=== PATIENT | female | born 1990 | race African-American/Black ===

== ENCOUNTER 2017-03-24 18:24 | Emergency (ER) | payer BC, OTHER ==
[~2017-03-24 18:24] MED LIST: ALBU8.5H6 IH; BUDE10.2 IH
--- NOTE | 2017-03-24 18:32 | ED.ADGEN ---
Past History Past Medical History: Asthma, Other Past Surgical History: , Tonsillectomy Alcohol Use: Occasionally Drug Use: None Adult General Chief Complaint Chief Complaint " My Lt knee popped yesterday.. at work at ... " HPI HPI Patient is a 26 year old female who presents with above hx and complaints of left knee pain. Patient was sitting down and felt a pop and left knee. Injury occurred yesterday while at working. Patient has been ambulatory but has had discomfort and swelling in left knee. Patient is able to do straight leg lift. Collateral and cruciate ligaments appear grossly stable. Distal neurovascular intact. There is some crepitation with range of motion of left knee. Left knee is mildly swollen as compared to right knee. Review of Systems Review of Systems Constitutional: Denies fever or chills [] Eyes: Denies change in visual acuity, redness, or eye pain [] HENT: Denies nasal congestion or sore throat [] Respiratory: Denies cough or shortness of breath [] Cardiovascular: No additional information not addressed in HPI [] GI: Denies abdominal pain, nausea, vomiting, bloody stools or diarrhea [] : Denies dysuria or hematuria [] Musculoskeletal: Denies back pain or joint pain []except findings of left knee Integument: Denies rash or skin lesions [] Neurologic: Denies headache, focal weakness or sensory changes [] Endocrine: Denies polyuria or polydipsia [] All other systems were reviewed and found to be within normal limits, except as documented in this note. Current Medications Current Medications Current Medications Medications (Trade) Dose Ordered Sig/[facility] Start Time Stop Time Status Last Admin Dose Admin Hydrocodone Bitartrate/ Ibuprofen (Vicoprofen 7.5-200) 2 tab 1X ONCE 03/24/17 19:45 03/24/17 19:46 DC 03/24/17 20:06 2 TAB Allergies Allergies Allergies Coded Allergies Type Severity Reaction Last Updated Verified Penicillins Allergy Unknown 03/24/17 Yes cephalexin Allergy Unknown Hives 03/24/17 Yes ciprofloxacin Allergy Unknown Rash 03/24/17 Yes Physical Exam Physical Exam Constitutional: Moderately acute distress, non-toxic appearance. [] HENT: Normocephalic, atraumatic, bilateral external ears normal, oropharynx moist, no oral exudates, nose normal. [] Eyes: PERRLA, EOMI, conjunctiva normal, no discharge. [] Neck: Normal range of motion, no tenderness, supple, no stridor. [] Cardiovascular:Heart rate regular rhythm, no murmur [] Lungs & Thorax: Bilateral breath sounds equal few scattered wheezes on auscultation [] Abdomen: Bowel sounds normal, soft, no tenderness, no masses, no pulsatile masses. Obese. Old surgery scar Skin: Warm, dry, no erythema, no rash. [] Back: No tenderness, no CVA tenderness. [] Extremities: No tenderness, no cyanosis, no clubbing, ROM intact, no edema. Except findings of left knee as per history of present illness Neurologic: Alert and oriented X 3, normal motor function, normal sensory function, no focal deficits noted. [] Psychologic: Affect normal, judgement normal, mood normal. [] Current Patient Data Vital Signs Vital Signs Date Time Temp Pulse Resp B/P (MAP) Pulse Ox O2 Delivery O2 Flow Rate FiO2 03/24/17 18:24 97.6 80 20 99 Room Air EKG EKG [] Radiology/Procedures Radiology/Procedures My interpretation of left knee x-ray shows no fracture or dislocation.[] Course & Med Decision Making Course & Med Decision Making Pertinent Labs and Imaging studies reviewed. (See chart for details). Patient take Tylenol and ibuprofen as needed for pain. Patient to allow need to rest and wear rima wrap. Ice packs as needed. Follow up with primary care. Follow-up work comp. May need arthroscopic evaluation if no improvement. [] Final Impression Final Impression 1. Lt Knee pain[]- Problems: Dragon Disclaimer Dragon Disclaimer This electronic medical record was generated, in whole or in part, using a voice recognition dictation system. CUCA SANCHEZ MD Mar 24, 2017 18:32
[2017-03-24] MEDS ORDERED: HYDROcodon/IBUPROFEN 7.5/200MG 1 TAB TABLET PO ONE (19:45)
[2017-03-24] MEDS ORDERED: HYDR-79 PO (19:51)
[2017-03-24 20:22] VITALS: BP 129/78
--- NOTE | 2017-03-25 07:46 | RAD ---
4 views left knee 03/24/2017 9:16 PM Indication: LEFT KNEE PAIN Comparison: Left knee radiographs July 21, 2012 Findings: There is no fracture or dislocation identified. Articular surfaces are uninterrupted. Soft tissues are unremarkable. Impression: No evidence of acute osseous abnormality
== END 2017-03-24 20:25 | disposition home or self-care (01) ==
LOC: ER 18:24
DX: M25.562 Pain in left knee (principal); R22.42 Localized swelling, mass and lump, left lower limb; J45.909 Unspecified asthma, uncomplicated; Z88.0 Allergy status to penicillin; Z88.1 Allergy status to other antibiotic agents; X50.9XXA Other and unspecified overexertion or strenuous movements or postures, initial encounter; Y93.89 Activity, other specified; Y99.8 Other external cause status; Y92.89 Other specified places as the place of occurrence of the external cause
CPT/HCPCS: 73564; 99284

== ENCOUNTER 2017-05-12 16:15 | Emergency (ER) | payer BC ==
[~2017-05-12] VITALS: Ht 149.9 cm; Wt 131.5 kg
[~2017-05-12 16:15] MED LIST changes: +HYDR-79 PO
[2017-05-12 16:45] VITALS: BP 139/87
[2017-05-12 17:26] LABS: INFLUENZA A PATIENT NEGATIVE (NEGATIVE); INFLUENZA B PATIENT NEGATIVE (NEGATIVE)
[2017-05-12] MEDS ORDERED: AZIT250T PO (17:41)
[2017-05-12] MEDS ORDERED: HYDR115S2 PO (17:41)
--- NOTE | 2017-05-12 17:41 | PHYS DOC ---
Past History Past Medical History: Asthma Past Surgical History: Cholecystectomy, , Tonsillectomy Smoking: Cigarettes Alcohol Use: Rarely Drug Use: None Adult General Chief Complaint Chief Complaint: SORE THROAT [facility] HPI 26-year-old female patient complaining of sore throat, nasal congestion , cough and shortness of breath for the last 4 days that gradually getting worse. Patient complaining of productive cough with yellow sputum for the last couple days. Patient denies vomiting, diarrhea, neck pain, sick contact, fever and chills , . Review of Systems Review of Systems Constitutional: Denies fever or chills [] Eyes: Denies change in visual acuity, redness, or eye pain [] HENT: Reports nasal congestion , sore throat [] Respiratory: Reports cough , shortness of breath [] Cardiovascular: No additional information not addressed in HPI [] GI: Denies abdominal pain, nausea, vomiting, bloody stools or diarrhea [] : Denies dysuria or hematuria [] Musculoskeletal: Denies back pain or joint pain [] Integument: Denies rash or skin lesions [] Neurologic: Denies headache, focal weakness or sensory changes [] Endocrine: Denies polyuria or polydipsia [] All other systems were reviewed and found to be within normal limits, except as documented in this note. Allergies Allergies Allergies Coded Allergies Type Severity Reaction Last Updated Verified Penicillins Allergy Unknown 03/24/17 Yes cephalexin Allergy Unknown Hives 03/24/17 Yes ciprofloxacin Allergy Unknown Rash 03/24/17 Yes Physical Exam Physical Exam Constitutional: Well developed, well nourished, mild distress, non-toxic appearance. [] HENT: Normocephalic, atraumatic, bilateral external ears normal, pharyngeal erythema, oropharynx moist, no oral exudates, nose normal. [] Eyes: PERRLA, EOMI, conjunctiva normal, no discharge. [] Neck: Normal range of motion, no tenderness, supple, no stridor. [] Cardiovascular:Heart rate regular rhythm, no murmur [] Lungs & Thorax: Bilateral breath sounds clear to auscultation [] Abdomen: Bowel sounds normal, soft, no tenderness, no masses, no pulsatile masses. [] Skin: Warm, dry, no erythema, no rash. [] Back: No tenderness, no CVA tenderness. [] Extremities: No tenderness, no cyanosis, no clubbing, ROM intact, no edema. [] Neurologic: Alert and oriented X 3, normal motor function, normal sensory function, no focal deficits noted. [] Psychologic: Affect normal, judgement normal, mood normal. [] Current Patient Data Vital Signs Vital Signs Date Time Temp Pulse Resp B/P (MAP) Pulse Ox O2 Delivery O2 Flow Rate FiO2 05/12/17 16:45 98.1 91 20 100 Lab Results Laboratory Tests Test 05/12/17 16:30 Influenza Type A (Rapid) Negative (NEGATIVE) Influenza Type B (Rapid) Negative (NEGATIVE) Group A Streptococcus Rapid Negative (NEGATIVE) EKG EKG [] Radiology/Procedures Radiology/Procedures [] Course & Med Decision Making Course & Med Decision Making Pertinent Labs reviewed. (See chart for details) []discharge: I've spoken with the patient and/or caregivers. I've explained the patient's condition, diagnosis and treatment plan based on information available to me at this time. I've answered the patient's and/or caregivers questions and addressed any concerns. The patient and/or caregivers have a good understanding the patient's diagnosis, condition and treatment plan as can be expected at this point. Vital signs have been stabilized. The patient's condition is stable for discharge from the emergency department. The patient will pursue further outpatient evaluation with her primary care provider or other designated consulting physician as outlined in the discharge instructions. Patient and/or caregivers are agreeable to this plan of care and follow-up instructions have been explained in detail. The patient and/or caregivers have received these instructions in written format and expressed understanding of these discharge instructions. The patient and her caregivers are aware that if any significant change in condition or worsening of symptoms should prompt him to immediately return to this of the closest emergency department. If an emergent department is not readily available I would encourage him to call 911. Amish Disclaimer Dragon Disclaimer This electronic medical record was generated, in whole or in part, using a voice recognition dictation system. Departure Departure: Impression: Primary Impression: Upper respiratory infection Additional Impressions: Tobacco abuse Tobacco abuse counseling Disposition: HOME, SELF-CARE (At 1740) Condition: STABLE Referrals: PCP,NO (PCP) Patient Instructions: Smoking Cessation, Upper Respiratory Infection, Adult Additional Instructions: Drink plenty of liquids Follow-up with your primary care physician in 3-5 days Return to ER if not getting better Scripts Hydrocodone/Chlorphen P-Stirex (Tussionex Pennkinetic Susp) 115 Ml Elinor.er.12h 5 ML PO BID, #120 ML Prov: ANANYA DUNN MD 05/12/17 Azithromycin (ZITHROMAX) 250 Mg Tablet 1 PKG PO UD, #1 PKG Prov: ANANYA DUNN MD 05/12/17 Problem Qualifiers ANANYA DUNN MD May 12, 2017 17:41
== END 2017-05-12 17:50 | disposition home or self-care (01) ==
LOC: ER 16:15
DX: J06.9 Acute upper respiratory infection, unspecified (principal); J45.909 Unspecified asthma, uncomplicated; F17.210 Nicotine dependence, cigarettes, uncomplicated; Z71.6 Tobacco abuse counseling; Z88.0 Allergy status to penicillin; Z88.1 Allergy status to other antibiotic agents
CPT/HCPCS: 87070; 87804; 87880; 99284

== ENCOUNTER 2018-12-22 14:14 | Emergency (ER) | payer BC ==
[~2018-12-22] VITALS: Ht 149.9 cm; Wt 133.8 kg
[~2018-12-22 14:14] MED LIST changes: +AZIT250T PO; +HYDR-1179 PO; -HYDR-79 PO; +HYDR115S2 PO
[2018-12-22] MEDS ORDERED: IV NORMAL SALINE 1,000ML 1,000 ML IV ONE (14:45)
[2018-12-22] MEDS ORDERED: ONDANSETRON PF 4 MG/2 ML VIAL. ONE (14:47)
[2018-12-22] MEDS ORDERED: MORPHINE SULFATE 4 MG/ML DISP.SYRIN. ONE (14:47)
[2018-12-22] MEDS ORDERED: ONDANSETRON PF 4 MG/2 ML VIAL. IV ONE (15:15)
[2018-12-22] MEDS ORDERED: MORPHINE SULFATE 4 MG/ML DISP.SYRIN. IV ONE ×2 (15:15→16:15)
[2018-12-22 15:33] LABS: BASO # 0.1 x10^3/uL (0.0-0.2); BASO % 1 % (0-3); EOS # 0.1 x10^3/uL (0.0-0.7); EOS % 1 % (0-3); HEMATOCRIT 38.9 % (36.0-47.0); HEMOGLOBIN 12.7 g/dL (12.0-15.5); LYMPH # 1.2 x10^3/uL (1.0-4.8); LYMPH % 16 % (24-48); MEAN CORPUSCULAR HEMOGLOBIN 27 pg (25-35); MEAN CORPUSCULAR HGB CONC 33 g/dL (31-37); MEAN CORPUSCULAR VOLUME 83 fL (79-100); MONO # 0.7 x10^3/uL (0.0-1.1); MONO % 10 % (0-9); NEUT # 5.6 x10^3uL (1.8-7.7); NEUT % 73 % (31-73); PLATELET COUNT 277 x10^3/uL (140-400); RED BLOOD COUNT 4.71 x10^6/uL (3.50-5.40); RED CELL DISTRIBUTION WIDTH 15.2 % (11.5-14.5); WHITE BLOOD COUNT 7.7 x10^3/uL (4.0-11.0)
[2018-12-22] MEDS ORDERED: DICYCLOMINE HCL 10 MG CAPSULE PO ONE (16:15)
[2018-12-22] MEDS ORDERED: IOHEXOL 300 MG/ML 75 ML VIAL. IV ONE (16:15)
[2018-12-22] MEDS ORDERED: DICYCLOMINE 20 MG/2 ML AMPUL. IM ONE ×2 (16:21→16:45)
[2018-12-22 16:22] LABS: ALBUMIN 3.1 g/dL (3.4-5.0); ALBUMIN/GLOBULIN RATIO 0.8 (1.0-1.7); CALCIUM 8.2 mg/dL (8.5-10.1); CREATININE 0.8 mg/dL (0.6-1.0); GFR 103.3; POTASSIUM 3.8 mmol/L (3.5-5.1); TOTAL BILIRUBIN 0.7 mg/dL (0.2-1.0)
[2018-12-22] MEDS ORDERED: CONTRAST GIVEN MC PRN (16:30)
[2018-12-22] MEDS ORDERED: ONDANSETRON PF 4 MG/2 ML VIAL. IVP ONE (16:30)
--- NOTE | 2018-12-22 16:58 | RAD ---
CT abdomen pelvis with contrast dated 12/22/2018. Comparison made to 09/01/2013. Clinical data indication: Severe right-sided pain. History of ulcerative colitis. TECHNIQUE: Continues axial imaging the abdomen and pelvis performed after the administration of 75 cc Omni 300. One or more of the following individualized dose reduction techniques were utilized for this examination: 1. Automated exposure control 2. Adjustment of the mA and/or kV according to patient size 3. Use of iterative reconstruction technique. FINDINGS: Limited images of lung bases are clear. Heart size mildly enlarged. No pleural or pericardial effusion. Liver is of diffuse low density suggesting mild fatty infiltration. No apparent mass. Biliary tree normal in caliber. Gallbladder surgically absent. Spleen is normal in size. Pancreas and adrenal glands are unremarkable. There is a vague area of low density involving the lower pole right kidney that measures about 2.8 cm in size, new from prior study. Mild inflammatory stranding of the right perinephric fat. No hydronephrosis. No calcific stone. Unopacified GI tract normal in caliber and contour. No focal bowel wall thickening. No inflammatory stranding in the mesentery. Appendix normal in caliber. No ascites or lymphadenopathy. Abdominal aorta normal in caliber. Images of pelvis show nondistended urinary bladder. Contraceptive device that appears adequately positioned in the endometrial canal. No free pelvic fluid or pelvic lymphadenopathy. Bone windows show no acute findings. IMPRESSION: 1. Vague area of low density at the inferior pole of right kidney with adjacent inflammatory stranding. Findings are new from prior exam and most likely consideration would be pyelonephritis. Correlate with laboratory values. If this does not fit clinically, short-term follow-up CT or MRI with and without contrast and better evaluate. 2. Otherwise no significant abnormality. Normal appendix. 3. Status post cholecystectomy. Electronically signed by: Kashif Love MD (12/22/2018 4:55 PM) [facility]
[2018-12-22 17:26] LABS: BILIRUBIN,URINE NEG (NEG); CLARITY,URINE CLOUDY; COLOR,URINE YELLOW; GLUCOSE,URINE NEG (NEG)
[2018-12-22 17:27] LABS: BACTERIA,URINE MANY /HPF (0-FEW); NITRITE,URINE POS (NEG); UROBILINOGEN,URINE 1 mg/dL (0.2 mg/dL); WBC,URINE 20-40 /HPF (0-4)
[2018-12-22 17:28] LABS: SQUAMOUS EPITHELIAL CELL,UR MANY /LPF
[2018-12-22] MEDS ORDERED: KETOROLAC 15 MG/ML VIAL. IVP ONE (17:30)
[2018-12-22 17:39] VITALS: BP 117/58
[2018-12-22] MEDS ORDERED: SULF1TAB24 PO (17:41)
[2018-12-22] MEDS ORDERED: ONDA4TAB12 PO (17:41)
[2018-12-22] MEDS ORDERED: OXYC-325 PO (17:41)
--- NOTE | 2018-12-22 17:59 | PHYS DOC ---
Past History Past Medical History: Other Additional Past Medical Histor: ULCERATIVE COLITIS Past Surgical History: Cholecystectomy, , Tonsillectomy Smoking: Cigarettes Alcohol Use: None Drug Use: None Adult General Chief Complaint Chief Complaint: ABDOMINAL PAIN HPI HPI Patient is a 28-year-old female with a presenting with abdominal pain and right flank right mid abdominal pain sharp severe worse with movement tried a heating pad that helped a little but then the pain came back she's been dry heaving and nauseous no definite fever that she knows of positive urinary frequency Review of Systems Review of Systems Constitutional: Denies fever or chills [] Eyes: Denies change in visual acuity, redness, or eye pain [] HENT: Denies nasal congestion or sore throat [] Respiratory: Denies cough or shortness of breath [] Cardiovascular: No additional information not addressed in HPI [] GI: \ Integument: Denies rash or skin lesions [] Neurologic: Denies headache, focal weakness or sensory changes [] Endocrine: Denies polyuria or polydipsia [] All other systems were reviewed and found to be within normal limits, except as documented in this note. Current Medications Current Medications Current Medications Medications (Trade) Dose Ordered Sig/[facility] Start Time Stop Time Status Last Admin Dose Admin Dicyclomine HCl (Bentyl) 10 mg 1X ONCE 12/22/18 16:45 12/22/18 16:46 DC 12/22/18 16:25 10 MG Info (Do NOT chart on this entry -- for MONITORING) 1 each PRN DAILY PRN 12/22/18 16:30 12/22/18 17:52 DC Iohexol (Omnipaque 300 Mg/ml) 75 ml 1X ONCE 12/22/18 16:15 12/22/18 16:18 DC 12/22/18 16:40 75 ML Ketorolac Tromethamine (Toradol 15mg Vial) 15 mg 1X ONCE 12/22/18 17:30 12/22/18 17:31 DC 12/22/18 17:28 15 MG Metoclopramide HCl (Reglan Vial) 10 mg 1X ONCE 12/22/18 18:15 12/22/18 17:52 DC Morphine Sulfate (Morphine 4mg Syringe) 4 mg 1X ONCE 12/22/18 16:15 12/22/18 16:16 DC 12/22/18 15:47 4 MG Ondansetron HCl (Zofran) 4 mg 1X ONCE 12/22/18 16:30 12/22/18 16:31 DC 12/22/18 16:24 4 MG Sodium Chloride 1,000 ml @ 1,000 mls/hr 1X ONCE 12/22/18 14:45 12/22/18 15:44 DC 12/22/18 14:51 1,000 MLS/HR Trimethoprim/ Sulfamethoxazole (Bactrim Ds) 1 tab 1X ONCE 12/22/18 18:15 12/22/18 17:52 DC Allergies Allergies Allergies Coded Allergies Type Severity Reaction Last Updated Verified Penicillins Allergy Unknown 03/24/17 Yes cephalexin Allergy Unknown Hives 03/24/17 Yes ciprofloxacin Allergy Unknown Rash 03/24/17 Yes Physical Exam Physical Exam Constitutional: Well developed, well nourished, no acute distress, non-toxic appearance. [] HENT: Normocephalic, atraumatic, bilateral external ears normal, oropharynx moist, no oral exudates, nose normal. [] Eyes: PERRLA, EOMI, conjunctiva normal, no discharge. [] Neck: Normal range of motion, no tenderness, supple, no stridor. [] Cardiovascular:Heart rate regular rhythm, no murmur [] Lungs & Thorax: Bilateral breath sounds clear to auscultation [] Abdomen: Bowel sounds normal, soft, right mid abdomen and also right CVA tenderness, no masses, no pulsatile masses. [] Skin: Warm, dry, no erythema, no rash. [] Back: No tenderness, Extremities: No tenderness, no cyanosis, no clubbing, ROM intact, no edema. [] Neurologic: Alert and oriented X 3, normal motor function, normal sensory function, no focal deficits noted. [] Psychologic: Tearful secondary to pain Current Patient Data Vital Signs Vital Signs Date Time Temp Pulse Resp B/P (MAP) Pulse Ox O2 Delivery O2 Flow Rate FiO2 12/22/18 17:39 79 18 117/58 (77) 100 Room Air 12/22/18 14:21 98.0 * Mild Temperature (Fahrenheit): * 98.0 degrees F (97.6-99.5) Patient Temperature * 98.0 degrees F (97.5-99.5) Temperature Source * Oral Blood Pressure Systolic * 145 mm Hg (100-140) H Blood Pressure Diastolic * 91 mm Hg (60-100) Blood Pressure Mean * 109 mm Hg Blood Pressure Location * Left Arm Blood Pressure Source * Automatic Cuff Pulse Rate * 88 beats per minute (60-90) Pulse Assessment Method * Monitor Respiratory Rate * 18 breaths per minute (12-24) Oxygen Delivery Method * Room Air Bedside Pulse Oximetry Lab Results Laboratory Tests Test 12/22/18 15:18 12/22/18 15:50 12/22/18 16:54 White Blood Count 7.7 x10^3/uL (4.0-11.0) Red Blood Count 4.71 x10^6/uL (3.50-5.40) Hemoglobin 12.7 g/dL (12.0-15.5) Hematocrit 38.9 % (36.0-47.0) Mean Corpuscular Volume 83 fL (79-100) Mean Corpuscular Hemoglobin 27 pg (25-35) Mean Corpuscular Hemoglobin Concent 33 g/dL (31-37) Red Cell Distribution Width 15.2 % (11.5-14.5) H Platelet Count 277 x10^3/uL (140-400) Neutrophils (%) (Auto) 73 % (31-73) Lymphocytes (%) (Auto) 16 % (24-48) L Monocytes (%) (Auto) 10 % (0-9) H Eosinophils (%) (Auto) 1 % (0-3) Basophils (%) (Auto) 1 % (0-3) Neutrophils # (Auto) 5.6 x10^3uL (1.8-7.7) Lymphocytes # (Auto) 1.2 x10^3/uL (1.0-4.8) Monocytes # (Auto) 0.7 x10^3/uL (0.0-1.1) Eosinophils # (Auto) 0.1 x10^3/uL (0.0-0.7) Basophils # (Auto) 0.1 x10^3/uL (0.0-0.2) Maternal Serum HCG Beta Subunit < 1 mIU/mL (0-6) Sodium Level 141 mmol/L (136-145) Potassium Level 3.8 mmol/L (3.5-5.1) Chloride Level 104 mmol/L (98-107) Carbon Dioxide Level 24 mmol/L (21-32) Anion Gap 13 (6-14) Blood Urea Nitrogen 6 mg/dL (7-20) L Creatinine 0.8 mg/dL (0.6-1.0) Estimated GFR (Cockcroft-Gault) 103.3 BUN/Creatinine Ratio 8 (6-20) Glucose Level 87 mg/dL (70-99) Calcium Level 8.2 mg/dL (8.5-10.1) L Total Bilirubin 0.7 mg/dL (0.2-1.0) Aspartate Amino Transferase (AST) 13 U/L (15-37) L Alanine Aminotransferase (ALT) 13 U/L (14-59) L Alkaline Phosphatase 84 U/L (46-116) Total Protein 7.0 g/dL (6.4-8.2) Albumin 3.1 g/dL (3.4-5.0) L Albumin/Globulin Ratio 0.8 (1.0-1.7) L Lipase 33 U/L (73-393) L Urine Collection Type Unknown Urine Color Yellow Urine Clarity Cloudy Urine pH 8.0 Urine Specific [place] 1.015 Urine Protein Neg (NEG-TRACE) Urine Glucose (UA) Neg mg/dL (NEG) Urine Ketones (Stick) 40 mg/dL (NEG) Urine Blood Mod (NEG) Urine Nitrite Pos (NEG) Urine Bilirubin Neg (NEG) Urine Urobilinogen Dipstick 1 mg/dL (0.2 mg/dL) Urine Leukocyte Esterase Small (NEG) Urine RBC 11-20 /HPF (0-2) Urine WBC 20-40 /HPF (0-4) Urine Squamous Epithelial Cells Many /LPF Urine Bacteria Many /HPF (0-FEW) EKG EKG [] Radiology/Procedures Radiology/Procedures [] Impressions: IMPRESSION: 1. Vague area of low density at the inferior pole of right kidney with adjacent inflammatory stranding. Findings are new from prior exam and most likely consideration would be pyelonephritis. Correlate with laboratory values. If this does not fit clinically, short-term follow-up CT or MRI with and without contrast and better evaluate. 2. Otherwise no significant abnormality. Normal appendix. 3. Status post cholecystectomy. Electronically signed by: Kashif Love MD (12/22/2018 4:55 PM) [facility] DICTATED AND SIGNED BY: KASHIF LOVE MD DATE: 12/22/18 0327 CC: JOAN CAIN MD; PCP,NO ~ Course & Med Decision Making Course & Med Decision Making Pertinent Labs and Imaging studies reviewed. (See chart for details) []28-year-old female presenting with pyelonephritis overall pretty well- appearing vitals look good pain was somewhat difficult to control but she felt better in the emergency room after Toradol she was discharged in stable condition with return precautions advised. Dragon Disclaimer Dragon Disclaimer This electronic medical record was generated, in whole or in part, using a voice recognition dictation system. Departure Departure: Impression: Primary Impression: Urinary tract infection Disposition: HOME, SELF-CARE Condition: STABLE Patient Instructions: Urinary Tract Infection, [id number] Scripts Oxycodone HCl/Acetaminophen (Percocet 5-325 mg Tablet) 1 Each Tablet 1 TAB PO PRN BID PRN for PAIN MDD 2 Tablet(s) for 5 Days, #10 TAB 0 Refills Prov: JOAN CAIN MD 12/22/18 Ondansetron (ONDANSETRON ODT) 4 Mg Tab.rapdis 1 TAB PO PRN Q6-8HRS PRN for NAUSEA/VOMITING, #16 TAB Prov: JOAN CAIN MD 12/22/18 Sulfamethoxazole/Trimethoprim (BACTRIM DS TABLET) 1 Each Tablet 1 TAB PO BID for uti for 10 Days, #20 TAB 0 Refills Prov: JOAN CAIN MD 12/22/18 JOAN CAIN MD Dec 22, 2018 17:59
[2018-12-22] MEDS ORDERED: METOCLOPRAMIDE HCL 10 MG/2 ML VIAL. IVP ONE (18:15)
[2018-12-22] MEDS ORDERED: SMZ/TMP 800/160MG TABLET. PO ONE (18:15)
== END 2018-12-22 17:52 | disposition home or self-care (01) ==
LOC: ER 14:14
DX: N39.0 Urinary tract infection, site not specified (principal); F17.210 Nicotine dependence, cigarettes, uncomplicated; Z90.49 Acquired absence of other specified parts of digestive tract; Z98.890 Other specified postprocedural states; Z88.0 Allergy status to penicillin; Z88.1 Allergy status to other antibiotic agents
CPT/HCPCS: 36415; 74177; 80053; 81001; 83690; 84702; 85025; 87086; 87186; 96372; 96374; 96375; 96376; 99285; J0500; J1885; J2270; J2405; Q9967; J7030

== ENCOUNTER 2019-04-23 15:46 | Emergency (ER) | payer BC ==
[~2019-04-23] VITALS: Ht 149.9 cm; Wt 132.6 kg
[~2019-04-23 15:46] MED LIST changes: +ONDA4TAB12 PO; +OXYC-325 PO; +SULF1TAB24 PO
--- NOTE | 2019-04-23 16:33 | PHYS DOC ---
Past History Past Medical History: GERD, Other Additional Past Medical Histor: ULCERATIVE COLITIS Past Surgical History: Cholecystectomy, , Tonsillectomy Smoking: Cigarettes Alcohol Use: Occasionally Drug Use: None Adult General Chief Complaint Chief Complaint: ABDOMINAL PAIN [facility] HPI 28-year-old female presents with left lower quadrant abdominal pain. She is also 3 episodes of diarrhea with some blood today. Patient has a history of ulcerative colitis. She does not take any daily medications. Her last flareup was in December. She is typically placed on prednisone and one other medicine which she can't member. She sees Dr. Gray. She denies shortness of breath or dizziness. She has no other symptoms other than the mild to moderate abdominal cramping and bloody stool. Review of Systems Review of Systems Constitutional: Denies fever or chills [] Eyes: Denies change in visual acuity, redness, or eye pain [] HENT: Denies nasal congestion or sore throat [] Respiratory: Denies cough or shortness of breath [] Cardiovascular: No additional information not addressed in HPI [] GI: LLQ abdominal pain, nausea, diarrhea with blood streaks[] : Denies dysuria or hematuria [] Musculoskeletal: Denies back pain or joint pain [] Integument: Denies rash or skin lesions [] Neurologic: Denies headache, focal weakness or sensory changes [] Endocrine: Denies polyuria or polydipsia [] All other systems were reviewed and found to be within normal limits, except as documented in this note. Allergies Allergies Allergies Coded Allergies Type Severity Reaction Last Updated Verified Penicillins Allergy Unknown 03/24/17 Yes cephalexin Allergy Unknown Hives 03/24/17 Yes ciprofloxacin Allergy Unknown Rash 03/24/17 Yes Physical Exam Physical Exam Constitutional: Well developed, morbidly obese, well nourished, no acute distress, non-toxic appearance. [] HENT: Normocephalic, atraumatic, bilateral external ears normal, oropharynx moist, no oral exudates, nose normal. [] Eyes: PERRLA, EOMI, conjunctiva normal, no discharge. [] Neck: Normal range of motion, no tenderness, supple, no stridor. [] Cardiovascular: Heart rate regular rhythm, no murmur [] Lungs & Thorax: Bilateral breath sounds clear to auscultation [] Abdomen: Bowel sounds normal, soft, left-sided tenderness without rebound, no masses, no pulsatile masses. [] Skin: Warm, dry, no erythema, no rash. [] Back: No tenderness, no CVA tenderness. [] Extremities: No tenderness, no cyanosis, no clubbing, ROM intact, no edema. [] Neurologic: Alert and oriented X 3, normal motor function, normal sensory function, no focal deficits noted. [] Psychologic: Affect normal, judgement normal, mood anxious. [] Current Patient Data Vital Signs Vital Signs Date Time Temp Pulse Resp B/P (MAP) Pulse Ox O2 Delivery O2 Flow Rate FiO2 04/23/19 15:55 97.8 67 16 136/88 (104) 100 Room Air EKG EKG [] Radiology/Procedures Radiology/Procedures [] Impressions: EXAM: CT Abdomen and Pelvis with IV contrast CLINICAL HISTORY: LLQ pain, diarrhea, history of ulcerative colitis. COMPARISON: 12/22/2018, 08/31/2013 TECHNIQUE: Helical CT of the abdomen and pelvis was performed following the administration of IV contrast. Axial, coronal and sagittal reformatted images were generated. ---PQRS compliance statement - One or more of the following individualized dose reduction techniques were utilized for this study: 1. Automated exposure control 2. Adjustment of the mA and/or kV according to patient size 3. Use of iterative reconstruction technique--- FINDINGS: Lower chest: Unremarkable Abdomen and pelvis: Liver and biliary system: Focal low-attenuation along the posterolateral ligament likely focal fatty infiltration. Cholecystectomy clips are seen. No biliary ductal dilatation. Spleen: Unremarkable Pancreas: Unremarkable Adrenal glands: Unremarkable Kidneys: Symmetric nephrograms. No focal renal lesion. No hydronephrosis. No hydroureter. Lymph nodes/retroperitoneum: No abdominal or pelvic lymphadenopathy by size criteria although a few mildly prominent iliac chain lymph nodes are seen, for example a left common iliac lymph node measures 8 mm short axis. Vessels: Aorta is normal in caliber. Bowel/Peritoneal cavity: Moderate colonic stool content is seen. No small or large bowel dilatation. No biliary ductal dilatation. Relative featureless appearance of a segment of the sigmoid colon may be related to the clinically provided history of ulcerative colitis. No definite pericolonic inflammatory changes or abnormal wall thickening is seen. Appendix is normal. No abdominal or pelvic ascites. IUD is seen within the uterus. Abdominal wall: Small fat-containing periumbilical hernia is seen. Bladder: Unremarkable Bones: No aggressive osseous lesion is seen. IMPRESSION: 1. No definite CT evidence for acute colitis. However relatively featureless appearance of the segment of sigmoid colon may be related to clinically provided history of ulcerative colitis. 2. Focal hepatic low-attenuation along the posterolateral ligament likely focal fatty infiltration of the liver. Electronically signed by: Semaj Rush MD (04/23/2019 5:41 PM) [id number] DICTATED AND SIGNED BY: SEMAJ RUSH MD DATE: 04/23/19 1741 CC: RYLEE DAMICO DO; PCP,NO ~ Course & Med Decision Making Course & Med Decision Making Pertinent Labs and Imaging studies reviewed. (See chart for details) The patient's CT scan does not show definite history of colitis flare. She does have some moderate stool retention. At this time I will advise that she take a stool softener or laxative. I will not place her on most of colitis treatment such as prednisone. I have advised that she follow-up with Dr. Gray's office this week. I spoke with Katherine at Dr. Gray's office and she recommended prednisone taper if an obvious flare otherwise just an office visit. The patient is stable for discharge at this time. [] Dragon Disclaimer Dragon Disclaimer This electronic medical record was generated, in whole or in part, using a voice recognition dictation system. Departure Departure: Impression: Primary Impression: LLQ abdominal pain Additional Impression: Constipation Disposition: 01 HOME, SELF-CARE Condition: STABLE Referrals: PCP,NO (PCP) Patient Instructions: Constipation, Adult, [id number] Problem Qualifiers Additional Impression: Constipation Constipation type: unspecified constipation type Qualified Codes: K59.00 - Constipation, unspecified RYLEE DAMICO DO Apr 23, 2019 16:33
[2019-04-23] MEDS ORDERED: CONTRAST GIVEN MC PRN (16:45)
[2019-04-23] MEDS ORDERED: IOHEXOL 300 MG/ML 75 ML VIAL. IV ONE (16:45)
[2019-04-23] MEDS ORDERED: IV NORMAL SALINE 1,000ML 1,000 ML IV ONE (16:45)
[2019-04-23] MEDS ORDERED: ONDANSETRON PF 4 MG/2 ML VIAL. IVP ONE ×2 (17:00→18:15)
[2019-04-23 17:03] LABS: BASO # 0.1 x10^3/uL (0.0-0.2); BASO % 1 % (0-3); CALCIUM 8.4 mg/dL (8.5-10.1); CREATININE 0.9 mg/dL (0.6-1.0); EOS # 0.2 x10^3/uL (0.0-0.7); EOS % 2 % (0-3); GFR 90.2; HEMATOCRIT 37.1 % (36.0-47.0); LYMPH % 29 % (24-48); MEAN CORPUSCULAR HEMOGLOBIN 28 pg (25-35); MEAN CORPUSCULAR HGB CONC 32 g/dL (31-37); MEAN CORPUSCULAR VOLUME 85 fL (79-100); MONO # 0.6 x10^3/uL (0.0-1.1); MONO % 9 % (0-9); NEUT % 58 % (31-73); PLATELET COUNT 296 x10^3/uL (140-400); POTASSIUM 4.1 mmol/L (3.5-5.1); RED BLOOD COUNT 4.34 x10^6/uL (3.50-5.40); RED CELL DISTRIBUTION WIDTH 15.6 % (11.5-14.5); WHITE BLOOD COUNT 6.9 x10^3/uL (4.0-11.0)
[2019-04-23 17:09] LABS: ALBUMIN 3.1 g/dL (3.4-5.0); ALBUMIN/GLOBULIN RATIO 0.8 (1.0-1.7); TOTAL BILIRUBIN 0.1 mg/dL (0.2-1.0); TOTAL PROTEIN 7.2 g/dL (6.4-8.2)
--- NOTE | 2019-04-23 17:44 | RAD ---
EXAM: CT Abdomen and Pelvis with IV contrast CLINICAL HISTORY: LLQ pain, diarrhea, history of ulcerative colitis. COMPARISON: 12/22/2018, 08/31/2013 TECHNIQUE: Helical CT of the abdomen and pelvis was performed following the administration of IV contrast. Axial, coronal and sagittal reformatted images were generated. ---PQRS compliance statement - One or more of the following individualized dose reduction techniques were utilized for this study: 1. Automated exposure control 2. Adjustment of the mA and/or kV according to patient size 3. Use of iterative reconstruction technique--- FINDINGS: Lower chest: Unremarkable Abdomen and pelvis: Liver and biliary system: Focal low-attenuation along the posterolateral ligament likely focal fatty infiltration. Cholecystectomy clips are seen. No biliary ductal dilatation. Spleen: Unremarkable Pancreas: Unremarkable Adrenal glands: Unremarkable Kidneys: Symmetric nephrograms. No focal renal lesion. No hydronephrosis. No hydroureter. Lymph nodes/retroperitoneum: No abdominal or pelvic lymphadenopathy by size criteria although a few mildly prominent iliac chain lymph nodes are seen, for example a left common iliac lymph node measures 8 mm short axis. Vessels: Aorta is normal in caliber. Bowel/Peritoneal cavity: Moderate colonic stool content is seen. No small or large bowel dilatation. No biliary ductal dilatation. Relative featureless appearance of a segment of the sigmoid colon may be related to the clinically provided history of ulcerative colitis. No definite pericolonic inflammatory changes or abnormal wall thickening is seen. Appendix is normal. No abdominal or pelvic ascites. IUD is seen within the uterus. Abdominal wall: Small fat-containing periumbilical hernia is seen. Bladder: Unremarkable Bones: No aggressive osseous lesion is seen. IMPRESSION: 1. No definite CT evidence for acute colitis. However relatively featureless appearance of the segment of sigmoid colon may be related to clinically provided history of ulcerative colitis. 2. Focal hepatic low-attenuation along the posterolateral ligament likely focal fatty infiltration of the liver. Electronically signed by: Semaj Rush MD (04/23/2019 5:41 PM) [facility]9
[2019-04-23 18:06] LABS: BILIRUBIN,URINE NEG (NEG); CLARITY,URINE CLEAR; COLOR,URINE YELLOW; GLUCOSE,URINE NEG (NEG)
[2019-04-23 18:07] LABS: BACTERIA,URINE FEW /HPF (0-FEW); NITRITE,URINE NEG (NEG); SQUAMOUS EPITHELIAL CELL,UR FEW /LPF; WBC,URINE OCC /HPF (0-4)
[2019-04-23] MEDS ORDERED: MORPHINE SULFATE 4 MG/ML DISP.SYRIN. IV ONE (18:15)
[2019-04-23 18:33] VITALS: BP 128/67
== END 2019-04-23 18:33 | disposition home or self-care (01) ==
LOC: ER 15:46
DX: K59.00 Constipation, unspecified (principal); R10.32 Left lower quadrant pain; R19.7 Diarrhea, unspecified; K21.9 Gastro-esophageal reflux disease without esophagitis; F17.210 Nicotine dependence, cigarettes, uncomplicated; Z90.49 Acquired absence of other specified parts of digestive tract; Z98.890 Other specified postprocedural states; Z88.0 Allergy status to penicillin; Z88.1 Allergy status to other antibiotic agents
CPT/HCPCS: 36415; 74177; 80053; 81001; 81025; 85025; 96361; 96374; 99285; J2405; Q9967; J7030

== ENCOUNTER 2020-03-07 18:08 | Emergency (ER) | payer BC, OTHER ==
[~2020-03-07] VITALS: Ht 149.9 cm; Wt 129.5 kg
[2020-03-07 19:21] VITALS: BP 127/99
[2020-03-07] MEDS ORDERED: IBUPROFEN 600 MG TABLET. PO ONE (19:45)
[2020-03-07] MEDS ORDERED: HYDROcodone/APAP 5/325MG 1 TAB TABLET PO ONE (20:00)
--- NOTE | 2020-03-07 20:32 | RAD ---
Three-view left foot dated 03/07/2020. COMPARISON: None. CLINICAL INDICATION: Heel pain. FINDINGS: 3 views left foot show normal bony alignment. No displaced fracture. No periostitis or bone destructi on. No acute osseous or articular abnormality. IMPRESSION: No acute findings. Electronically signed by: Kashif Love MD (03/07/2020 8:30 PM) [id number]
--- NOTE | 2020-03-07 21:06 | PHYS DOC ---
Past History Past Medical History: Asthma, GERD, Other Additional Past Medical Histor: ULCERATIVE COLITIS (KASHIF EWING APRN) Past Surgical History: Cholecystectomy, , Tonsillectomy (KASHIF EWING APRN) Smoking: Cigarettes Alcohol Use: Occasionally Drug Use: None (KASHIF EWING APRN) Adult General Chief Complaint Chief Complaint: ANKLE PROBLEM HPI HPI Patient is a 29-year-old female reports left Achilles area pain sudden onset while working today. 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 Patient currently rates her pain at a 10/10 on a 1-10 pain scale. Patient denies any other injuries or physical complaints. Patient states she did not take anything for her pain, states she just came straight here for an evaluation. (KASHIF EWING APRN) Review of Systems Review of Systems 14 body systems of review of systems have been reviewed. See HPI for pertinent positives and negative responses, otherwise all other systems are negative, nonpertinent or noncontributory. (KASHIF EWING APRN) Current Medications Current Medications Current Medications Medications (Trade) Dose Ordered Sig/Arnold Start Time Stop Time Status Last Admin Dose Admin Acetaminophen/ Hydrocodone Bitart (Lortab 5/325) 1 tab 1X ONCE 03/07/20 20:00 03/07/20 20:01 DC 03/07/20 20:05 1 TAB Ibuprofen (Motrin) 600 mg 1X ONCE 03/07/20 19:45 03/07/20 19:53 DC 03/07/20 20:06 600 MG (KASHIF EWING APRN) Allergies Allergies Allergies Coded Allergies Type Severity Reaction Last Updated Verified Penicillins Allergy Unknown 03/24/17 Yes cephalexin Allergy Unknown Hives 03/24/17 Yes ciprofloxacin Allergy Unknown Rash 03/24/17 Yes (KASHIF EWING APRN) Physical Exam Physical Exam Constitutional: Well developed, well nourished, no acute distress, non-toxic appearance. HENT: Normocephalic, atraumatic, bilateral external ears normal, oropharynx moist, no oral exudates, nose normal. Eyes: PERRLA, EOMI, conjunctiva normal, no discharge. Neck: Normal range of motion, no tenderness, supple, no stridor. Cardiovascular:Heart rate regular rhythm, no murmur Lungs & Thorax: Bilateral breath sounds clear to auscultation Abdomen: Bowel sounds normal, soft, no tenderness, no masses, no pulsatile masses. Skin: Warm, dry, no erythema, no rash. Back: No tenderness, no CVA tenderness. Extremities: No tenderness, no cyanosis, no clubbing, ROM intact, no edema. Except for left Achilles surfaces, Trivedi test negative, 2+ posterior tibial/dorsalis pedis pulses, distal cap refill less than 2 seconds, no swelling appreciated, no swelling of the Achilles tendon on the left appreciated, pain elicited during palpation and examination of the left Achilles tendon. Neurologic: Alert and oriented X 3, normal motor function, normal sensory function, no focal deficits noted. [] Psychologic: Affect normal, judgement normal, mood normal. [] (KASHIF EWING APRN) Current Patient Data Vital Signs Vital Signs Date Time Temp Pulse Resp B/P (MAP) Pulse Ox O2 Delivery O2 Flow Rate FiO2 03/07/20 20:05 100 03/07/20 19:21 89 16 127/99 (108) Room Air (KASHIF EWING APRN) EKG EKG [] (KASHIF EWING APRN) Radiology/Procedures Radiology/Procedures STATUS: REG ER ORD. PHYSICIAN: KASHIF EWING APRN REASON: HEEL PAIN AFTER WORK PROCEDURE: FOOT LEFT 3V Three-view left foot dated 03/07/2020. COMPARISON: None. CLINICAL INDICATION: Heel pain. FINDINGS: 3 views left foot show normal bony alignment. No displaced fracture. No periostitis or bone destruction. No acute osseous or articular abnormality. IMPRESSION: No acute findings. Electronically signed by: Kashif Santo MD (03/07/2020 8:30 PM) [id number] DICTATED AND SIGNED BY: KASHIF SANTO MD DATE: 03/07/202028 CC: KASHIF EWING APRN; EMERGENCY,DEPARTMENT; PCP,NO ~MTH0 0 (KASHIF EWING APRN) Heart Score Risk Factors: Risk Factors: DM, Current or recent (<one month) smoker, HTN, HLP, family history of CAD, obesity. Risk Scores: Risk Factors: DM, Current or recent (<one month) smoker, HTN, HLP, family history of CAD, obesity. (KASHIF EWING APRN) Course & Med Decision Making Course & Med Decision Making Pertinent Labs and Imaging studies reviewed. (See chart for details) 29-year-old female, vital signs stable, presents to the ER today with left Achilles tendon pain, Trivedi test was negative, however pain was elicited during palpation examination of the left Achilles tendon. An x-ray was ordered, 1 5 mg [place] and 1 600 mg ibuprofen was given X-ray was negative for acute fracture, examination concerning for left Achilles tendinitis, low likelihood of complete rupture however partial rupture cannot be ruled out, discussed findings with patient, patient possibly needs MRI for further study, patient states she will follow up with her work comp doctor for further evaluation and care. Patient's left foot and ankle were wrapped with Will wrap, discussed RICE therapy with patient, patient given crutches with instructions by ED nursing staff, patient gave verbal understanding of home care instructions, follow-up with work comp or primary care physician soon, return to ER precautions and concerns, had no further questions or concerns and was discharged home without incident. (KASHIF EWING APRN) Dragon Disclaimer Dragon Disclaimer This electronic medical record was generated, in whole or in part, using a voice recognition dictation system. (KASHIF EWING APRN) Departure Departure: Impression: Primary Impression: Strain of left Achilles tendon, initial encounter Disposition: 01 DC HOME SELF CARE/HOMELESS Condition: STABLE Referrals: PCP,NO (PCP) Patient Instructions: Achilles Tendinitis, Elastic Bandage and RICE Additional Instructions: You have been examined today for pain in your left Achilles tendon area, x-ray did not show any concerning injury, please follow-up with your primary care physician or your work comp doctor as I believe an MRI will be needed to properly diagnose your pain symptoms. Please continue to use your rest, ice, Will wrap and elevation, I have given you a work excuse for 2 days, please follow-up with your work comp doctor or your primary care doctor for further ongoing symptoms, please return to emergency department for worsening symptoms or other concerns. EMERGENCY DEPARTMENT GENERAL DISCHARGE INSTRUCTIONS Thank you for coming to [facility] (ED) today and trusting us with you care. We trust that you had a positivie experience in our Emergency Department. If you wish to speak to the department management, you may call the director at [phone]. YOUR FOLLOW UP INSTRUCTIONS ARE FOLLOWS: 1. Do you have a private Doctor? If you do not have a private doctor, please ask for a resource list of physicians or clinics that may be able to assist you with follow up care. 2. The Emergency Physician has interpreted your x-rays. The X-Ray specialist will also review them. If there is a change in the findings, you will be notified in 48 hours when at all possible. 3. A lab test or culture has been done, your results will be reviewed and you will be notified if you need a change in treatment. ADDITIONAL INSTRUCTIONS AND INFORMATION: 1. Your care today has been supervised by a physician who is specially trained in emergency care. Many problems require more than one evaluation for a complete diagnosis and treatment. We recommend that you schedule your follow up appointment as recommended to ensure complete treatment of you illness or injury. If you are unable to obtain follow up care and continue to have a problem, or if your condition worsens, we recommend that you return to the ED. 2. We are not able to safely determine your condition over the phone nor are we able to give sound medical advice over the phone. For these safety reasons, if you call for medical advice we will ask you to come to the ED for further evaluation. 3. If you have any questions regarding these discharge instructions please call the ED at [phone]. SAFETY INFORMATION: In the interest of safety, wellness, and injury prevention; we encourage you to wear your sealbelt, if you smoke; quite smoking, and we encourage family to use a protective helmet for bicycling and other sporting events that present an increased risk for head injury. IF YOUR SYMPTOMS WORSEN OR NEW SYMPTOMS DEVELOP, OR YOU HAVE CONCERNS ABOUT YOUR CONDITION; OR IF YOUR CONDITION WORSENS WHILE YOU ARE WAITING FOR YOUR FOLLOW UP APPOINTMENT; EITHER CONTACT YOUR PRIMARY CARE DOCTOR, THE PHYSICIAN WHOSE NAME AND NUMBER YOU WERE GIVEN, OR RETURN TO THE ED IMMEDIATELY. Scripts Ibuprofen (IBUPROFEN) 600 Mg Tablet 600 MG PO TID PRN PRN for PAIN AND INFLAMMATION, #30 TAB 0 Refills Prov: KASHIF EWING A WORKFORCE DEVELOPMENT VICE PRESIDENT 03/07/20 Amish Disclaimer This chart was dictated in whole or in part using Voice Recognition software in a busy, high-work load, and often noisy Emergency Department environment. It may contain unintended and wholly unrecognized errors or omissions. (CUCA SANCHEZ MD) Attending Signature Attending Signature I have participated in the care of this patient and I have reviewed and agree with all pertinent clinical information above including history, exam, and recom mendations. (CUCA SANCHEZ MD) KASHIF EWING APRN Mar 07, 2020 21:06 CUCA SANCHEZ MD Mar 08, 2020 10:00
[2020-03-07] MEDS ORDERED: IBUP600T16 PO (21:26)
== END 2020-03-07 21:35 | disposition home or self-care (01) ==
LOC: ER 18:08
DX: S86.012A Strain of left Achilles tendon, initial encounter (principal); J45.909 Unspecified asthma, uncomplicated; K21.9 Gastro-esophageal reflux disease without esophagitis; F17.210 Nicotine dependence, cigarettes, uncomplicated; Z90.49 Acquired absence of other specified parts of digestive tract; Z98.890 Other specified postprocedural states; Z90.89 Acquired absence of other organs; Z88.0 Allergy status to penicillin; Z88.1 Allergy status to other antibiotic agents; X58.XXXA Exposure to other specified factors, initial encounter; Y93.89 Activity, other specified; Y92.89 Other specified places as the place of occurrence of the external cause; Y99.0 Civilian activity done for income or pay
CPT/HCPCS: 73630; 99283; L4350

== ENCOUNTER 2020-09-08 16:33 | Emergency (ER) | payer BC, OTHER ==
[~2020-09-08] VITALS: Ht 149.9 cm; Wt 129.5 kg
[~2020-09-08 16:33] MED LIST changes: +IBUP600T16 PO
[2020-09-08 18:19] LABS: BILIRUBIN,URINE SMALL (NEG); CLARITY,URINE HAZY; COLOR,URINE YELLOW; GLUCOSE,URINE NEG (NEG)
[2020-09-08 18:20] LABS: BACTERIA,URINE MANY /HPF (0-FEW); NITRITE,URINE POS (NEG); SQUAMOUS EPITHELIAL CELL,UR FEW /LPF; WBC,URINE OCC /HPF (0-4)
[2020-09-08] MEDS ORDERED: IV NORMAL SALINE 1,000ML 1,000 ML IV ONE (18:45)
--- NOTE | 2020-09-08 18:56 | PHYS DOC ---
Past History Past Medical History: Asthma, GERD, Other Additional Past Medical Histor: ULCERATIVE COLITIS Past Surgical History: Cholecystectomy, , Tonsillectomy Smoking: Cigarettes Alcohol Use: Occasionally Drug Use: None General Adult EDM: Chief Complaint: RECTAL BLEED HPI: HPI: 29-year-old female presents with rectal bleeding left lower quadrant abdominal pain. The patient has not had a bowel movement in at least a couple of days. She feels like she needs to go but she is just had blood with no stool. Today it was bright red, yesterday it was darker red. 4 episodes today. She has intermittent cramping in the left lower quadrant that is moderate in intensity. She has nausea but denies fever or chills. She has been diagnosed with ulcers in the past. Review of Systems: Review of Systems: Constitutional: Denies fever or chills Eyes: Denies change in visual acuity HENT: Denies nasal congestion or sore throat Respiratory: Denies cough or shortness of breath Cardiovascular: Denies chest pain or edema GI: Constipation, rectal bleeding : Denies dysuria Musculoskeletal: Denies back pain or joint pain Integument: Denies rash Neurologic: Denies headache, focal weakness or sensory changes Endocrine: Denies polyuria or polydipsia Lymphatic: Denies swollen glands Psychiatric: Denies depression or anxiety Current Medications: Current Meds: Current Medications Medications (Trade) Dose Ordered Sig/Arnold Start Time Stop Time Status Last Admin Dose Admin Sodium Chloride 1,000 ml @ 1,000 mls/hr 1X ONCE 09/08/20 18:45 09/08/20 19:44 Allergies: Allergies: Allergies Coded Allergies Type Severity Reaction Last Updated Verified Penicillins Allergy Unknown 03/24/17 Yes cephalexin Allergy Unknown Hives 03/24/17 Yes ciprofloxacin Allergy Unknown Rash 03/24/17 Yes Physical Exam: PE: Constitutional: Well developed, well nourished, morbidly obese, no acute distress, non-toxic appearance. [] HENT: Normocephalic, atraumatic, bilateral external ears normal, oropharynx moist, no oral exudates, nose normal. [] Eyes: PERRLA, EOMI, conjunctiva normal, no discharge. [] Neck: Normal range of motion, no tenderness, supple, no stridor. [] Cardiovascular: Heart rate regular rhythm, no murmur [] Lungs & Thorax: Bilateral breath sounds clear to auscultation [] Abdomen: Bowel sounds normal, soft, mild left lower quadrant tenderness without guarding or rebound. [] Skin: Warm, dry, no erythema, no rash. [] Back: No tenderness, no CVA tenderness. [] Extremities: No tenderness, no cyanosis, no clubbing, ROM intact, no edema. [] Neurologic: Alert and oriented X 3, normal motor function, normal sensory function, no focal deficits noted. [] Psychologic: Affect normal, judgement normal, mood depressed. [] Current Patient Data: Labs: Laboratory Tests Test 09/08/20 17:41 09/08/20 17:51 Urine Collection Type Unknown Urine Color Yellow Urine Clarity Hazy Urine pH 6.0 Urine Specific [place] >=1.030 Urine Protein 30 mg/dl (NEG-TRACE) Urine Glucose (UA) Neg mg/dL (NEG) Urine Ketones (Stick) Trace mg/dL (NEG) Urine Blood Neg (NEG) Urine Nitrite Pos (NEG) Urine Bilirubin Small (NEG) Urine Urobilinogen Dipstick 1.0 mg/dL (0.2 mg/dL) Urine Leukocyte Esterase Neg (NEG) Urine RBC 1-2 /HPF (0-2) Urine WBC Occ /HPF (0-4) Urine Squamous Epithelial Cells Few /LPF Urine Bacteria Many /HPF (0-FEW) POC Urine HCG, Qualitative hcg negative (Negative) Vital Signs: Vital Signs Date Time Temp Pulse Resp B/P (MAP) Pulse Ox O2 Delivery O2 Flow Rate FiO2 09/08/20 16:55 98.1 81 16 144/94 99 Nasal Cannula EKG: EKG: [] Radiology/Procedures: Radiology/Procedures: [] Heart Score: C/O Chest Pain: N/A Risk Factors: Risk Factors: DM, Current or recent (<one month) smoker, HTN, HLP, family history of CAD, obesity. Risk Scores: Score 0 - 3: 2.5% MACE over next 6 weeks - Discharge Home Score 4 - 6: 20.3% MACE over next 6 weeks - Admit for Clinical Observation Score 7 - 10: 72.7% MACE over next 6 weeks - Early Invasive Strategies Course & Med Decision Making: Course & Med Decision Making Pertinent Labs and Imaging studies reviewed. (See chart for details) The patient's stool color is positive for blood. Her stool in the ED was mucousy but not grossly bloody. CT of the abdomen and pelvis is negative for acute findings. The patient's labs are normal. This could be viral or infect ious diarrhea. The patient does have a urinary tract infection. Based on her allergies I will treat her with Macrobid. This should self resolve in a couple of days. If the mucus stools and bloody stool does not improve, she can follow- up with her primary care physician. She is stable for discharge at this time. [] Dragon Disclaimer: Dragon Disclaimer: This electronic medical record was generated, in whole or in part, using a voice recognition dictation system. Departure Departure: Impression: Primary Impression: Urinary tract infection Qualified Codes: N30.01 - Acute cystitis with hematuria Additional Impression: Rectal bleeding Disposition: HOME / SELF CARE / HOMELESS Condition: STABLE Referrals: PCP,NO (PCP) Patient Instructions: Rectal Bleeding, [id number], Urinary Tract Infection, [id number] RYLEE DAMICO DO Sep 08, 2020 18:56
[2020-09-08] MEDS ORDERED: IOHEXOL 300 MG/ML 75 ML VIAL. IV ONE (19:00)
[2020-09-08] MEDS ORDERED: ONDANSETRON PF 4 MG/2 ML VIAL. IVP ONE (19:00)
[2020-09-08 19:39] LABS: BASO # 0.1 x10^3/uL (0.0-0.2); BASO % 1 % (0-3); EOS # 0.2 x10^3/uL (0.0-0.7); EOS % 2 % (0-3); HEMATOCRIT 39.8 % (36.0-47.0); HEMOGLOBIN 12.9 g/dL (12.0-15.5); LYMPH # 1.9 x10^3/uL (1.0-4.8); LYMPH % 31 % (24-48); MEAN CORPUSCULAR HEMOGLOBIN 28 pg (25-35); MEAN CORPUSCULAR HGB CONC 32 g/dL (31-37); MEAN CORPUSCULAR VOLUME 87 fL (79-100); MONO # 0.5 x10^3/uL (0.0-1.1); MONO % 8 % (0-9); NEUT # 3.6 x10^3uL (1.8-7.7); NEUT % 58 % (31-73); PLATELET COUNT 329 x10^3/uL (140-400); RED BLOOD COUNT 4.58 x10^6/uL (3.50-5.40); RED CELL DISTRIBUTION WIDTH 14.6 % (11.5-14.5); WHITE BLOOD COUNT 6.3 x10^3/uL (4.0-11.0)
[2020-09-08 19:46] LABS: CALCIUM 8.3 mg/dL (8.5-10.1); GFR 79.3; POTASSIUM 3.8 mmol/L (3.5-5.1)
--- NOTE | 2020-09-08 19:50 | RAD ---
Exam: CT of abdomen and pelvis with contrast INDICATION: Rectal bleeding TECHNIQUE: Sequential axial images through the abdomen and pelvis obtained following the administrati on of 74 mL of Isovue-370 IV contrast. Sagittal and coronal reformatted images were reconstructed fro m the axial data and reviewed. Exposure: One or more of the following in the visualized dose reduction techniques were utilized for this examination: 1. Automated exposure control 2. Adjustment of the MA and/or KV according to patient size 3. Use of iterative of reconstructive technique Comparisons: 04/23/2019 FINDINGS: Heart size is normal. No pericardial effusion. Visualized lung bases are clear. No pleural effusion. Liver, spleen, pancreas and adrenals are unremarkable. Gallbladder is absent. No perinephric inflammation or hydronephrosis. No renal or ureteral calculi are identified. Bladder is decompressed not well evaluated. Uterus is nonenlarged. No abnormal adnexal mass. Large and small bowel are unremarkable. Appendix is normal. No free abdominal air or fluid. No obstru ction. Abdominal aorta has a normal course and caliber. Abdominal vasculature is patent. No enlarged intra-abdominal lymph nodes are identified. No suspicious osseous lesions or acute fractures. IMPRESSION: No acute process identified within the abdomen or pelvis. Electronically signed by: Lizz Klein MD (09/08/2020 7:48 PM) [facility]
[2020-09-08 19:55] LABS: ALBUMIN 3.6 g/dL (3.4-5.0); ALBUMIN/GLOBULIN RATIO 0.9 (1.0-1.7); TOTAL BILIRUBIN 0.4 mg/dL (0.2-1.0); TOTAL PROTEIN 7.8 g/dL (6.4-8.2)
[2020-09-08 20:00] LABS: U PREG PATIENT NEGATIVE (NEG)
[2020-09-08] MEDS ORDERED: NITROFURANTOIN MONOHYD/M-CRYST 100 MG CAPSULE. PO ONE (20:00)
[2020-09-08 20:10] LABS: FECAL OB PT POSITIVE (NEG)
[2020-09-08] MEDS ORDERED: NITR100C62 PO (20:23)
[2020-09-08 20:33] VITALS: BP 139/75
== END 2020-09-08 20:33 | disposition home or self-care (01) ==
LOC: ER 16:33
DX: N30.01 Acute cystitis with hematuria (principal); K62.5 Hemorrhage of anus and rectum; K59.00 Constipation, unspecified; J45.909 Unspecified asthma, uncomplicated; K21.9 Gastro-esophageal reflux disease without esophagitis; F17.210 Nicotine dependence, cigarettes, uncomplicated; Z90.49 Acquired absence of other specified parts of digestive tract; Z98.890 Other specified postprocedural states; Z88.0 Allergy status to penicillin; Z88.1 Allergy status to other antibiotic agents
CPT/HCPCS: 36415; 74177; 80053; 81001; 81025; 82274; 85025; 87086; 96361; 96374; 99285; J2405; J7030; Q9967

== ENCOUNTER 2020-11-25 18:50 | Emergency (ER) | payer BC ==
[~2020-11-25] VITALS: Ht 149.9 cm; Wt 130.5 kg
[~2020-11-25 18:50] MED LIST changes: +NITR100C62 PO
[2020-11-25 19:18] VITALS: BP 127/73
--- NOTE | 2020-11-25 19:33 | PHYS DOC ---
Past History Past Medical History: Asthma, GERD, Other Additional Past Medical Histor: ULCERATIVE COLITIS (TANIYA CRUZ APRN) Past Surgical History: Cholecystectomy, , Tonsillectomy (TANIYA CRUZ APRN) Smoking: Cigarettes Alcohol Use: Occasionally Drug Use: None (TANIYA CRUZ APRN) General Adult EDM: Chief Complaint: LOWER EXT PAIN HPI: HPI: Patient is a 30-year-old female being seen in the emergency department for left posterior foot pain. Patient reports that she injured her Achilles tendon in February and her pain was getting better but then on she was walking around a lot at work and started experiencing worsening of her pain. She rates it 4 out of 10 without movement and 8 out of 10 with movement. No treatment prior to arrival. 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 Patient denies any new injury. She reports increased pain with movement. She denies any decreased sensation to extremity. Patient states that she has been able to bear weight and ambulate. (TANIYA CRUZ APRN) Review of Systems: Review of Systems: 14 body systems of the review of systems have been reviewed. See HPI for pertinent positive and negative responses, otherwise all other systems are negative, nonpertinent or noncontributory (TANIYA CRUZ APRN) Allergies: Allergies: Allergies Coded Allergies Type Severity Reaction Last Updated Verified Penicillins Allergy Unknown 11/25/20 Yes cephalexin Allergy Unknown Hives 11/25/20 Yes ciprofloxacin Allergy Unknown Rash 11/25/20 Yes (TANIYA CRUZ APRN) Physical Exam: PE: Constitutional: Well developed, well nourished, no acute distress, non-toxic appearance. [] HENT: Normocephalic, atraumatic Eyes: PERRL, EOMI, conjunctiva normal, no discharge. [] Neck: Normal range of motion, no stridor Cardiovascular: No peripheral perfusion Lungs & Thorax: Normal work of breathing, no tachypnea Abdomen: Obese, soft Skin: Warm, dry, no erythema, no rash. [] Back: Normal range of motion Extremities: No tenderness, no cyanosis, no clubbing, ROM intact, no edema. Left posterior foot: No swelling, range of motion intact but pain with flexion and extension of ankle, neuro intact, no obvious deformity, no wounds Neurologic: Alert and oriented X 3, normal motor function, normal sensory function, no focal deficits noted. [] Psychologic: Affect normal, judgement normal, mood normal. [] (TANIYA CRUZ APRN) Current Patient Data: Vital Signs: Vital Signs Date Time Temp Pulse Resp B/P (MAP) Pulse Ox O2 Delivery O2 Flow Rate FiO2 11/25/20 19:18 97.9 77 18 127/73 (91) 100 (TANIYA CRUZ APRN) EKG: EKG: [] (TANIYA CRUZ APRN) Radiology/Procedures: Radiology/Procedures: []PROCEDURE: ANKLE LEFT 3V Left ankle 3 views. HISTORY: Achilles pain 3 views were taken of the left ankle. There is not evidence of an acute fracture or osseous abnormality. IMPRESSION: 1. Negative left ankle. Electronically signed by: Magdiel Naylor MD (11/25/2020 7:50 PM) [facility] DICTATED AND SIGNED BY: MAGDIEL NAYLOR MD DATE: 11/25/201948 CC: EMERGENCY,DEPARTMENT; TANIYA CRUZ APRN; ETHAN CHAVIRA MD ~MTH0 0 (TANIYA CRUZ APRN) Heart Score: C/O Chest Pain: N/A Risk Factors: Risk Factors: DM, Current or recent (<one month) smoker, HTN, HLP, family history of CAD, obesity. Risk Scores: Score 0 - 3: 2.5% MACE over next 6 weeks - Discharge Home Score 4 - 6: 20.3% MACE over next 6 weeks - Admit for Clinical Observation Score 7 - 10: 72.7% MACE over next 6 weeks - Early Invasive Strategies (TANIYA CRUZ APRN) Course & Med Decision Making: Course & Med Decision Making Pertinent Labs and Imaging studies reviewed. (See chart for details) [] Patient is a 30-year-old female being seen in the ER for left posterior foot pain. She denies any new injury but states that she did increase walking on night at work. An x-ray was performed of her left foot that was negative for any acute findings. Patient advised to rest and take Tylenol or ibuprofen for pain at home. Patient advised to follow-up with her primary care provider. I discussed with patient all findings and diagnostic testing as well as the need to follow-up with PCP for further evaluation and treatment or return to the ER if any new or worsening symptoms. Strict return precautions were also discussed at length. Patient voiced understanding and agreement with the plan. Patient is hemodynamically stable at the time of disposition. (TANIYA CRUZ APRN) Amish Disclaimer: Amish Disclaimer: This electronic medical record was generated, in whole or in part, using a voice recognition dictation system. (TANIYA CRUZ APRN) Departure Departure: Impression: Primary Impression: Achilles tendonitis Qualified Codes: M76.62 - Achilles tendinitis, left leg Disposition: HOME / SELF CARE / HOMELESS Condition: GOOD Referrals: ETHAN CHAVIRA MD (PCP) Patient Instructions: Achilles Tendinitis Additional Instructions: You were seen in the emergency department for left foot pain. An x-ray was performed that was negative for any acute findings. Rest and avoid strenuous exercise and activities. You can take Tylenol or ibuprofen for your pain. Stretching may help with your symptoms. Follow-up with your primary care provider tomorrow regarding your ER visit. Please return to the emergency department if you develop worsening of your pain, inability to bear weight or ambulate, any new injuries, decreased range of motion or decreased sensation to your extremity. EMERGENCY DEPARTMENT GENERAL DISCHARGE INSTRUCTIONS Thank you for coming to [facility] (ED) today and trusting us with you care. We trust that you had a positivie experience in our Emergency Department. If you wish to speak to the department management, you may call the director at [phone]. YOUR FOLLOW UP INSTRUCTIONS ARE FOLLOWS: 1. Do you have a private Doctor? If you do not have a private doctor, please ask for a resource list of physicians or clinics that may be able to assist you with follow up care. 2. The Emergency Physician has interpreted your x-rays. The X-Ray specialist will also review them. If there is a change in the findings, you will be notified in 48 hours when at all possible. 3. A lab test or culture has been done, your results will be reviewed and you will be notified if you need a change in treatment. ADDITIONAL INSTRUCTIONS AND INFORMATION: 1. Your care today has been supervised by a physician who is specially trained in emergency care. Many problems require more than one evaluation for a complete diagnosis and treatment. We recommend that you schedule your follow up appointment as recommended to ensure complete treatment of you illness or injury. If you are unable to obtain follow up care and continue to have a problem, or if your condition worsens, we recommend that you return to the ED. 2. We are not able to safely determine your condition over the phone nor are we able to give sound medical advice over the phone. For these safety reasons, if you call for medical advice we will ask you to come to the ED for further evaluation. 3. If you have any questions regarding these discharge instructions please call the ED at [phone]. SAFETY INFORMATION: In the interest of safety, wellness, and injury prevention; we encourage you to wear your sealbelt, if you smoke; quite smoking, and we encourage family to use a protective helmet for bicycling and other sporting events that present an increased risk for head injury. IF YOUR SYMPTOMS WORSEN OR NEW SYMPTOMS DEVELOP, OR YOU HAVE CONCERNS ABOUT YOUR CONDITION; OR IF YOUR CONDITION WORSENS WHILE YOU ARE WAITING FOR YOUR FOLLOW UP APPOINTMENT; EITHER CONTACT YOUR PRIMARY CARE DOCTOR, THE PHYSICIAN WHOSE NAME AND NUMBER YOU WERE GIVEN, OR RETURN TO THE ED IMMEDIATELY. Attending Signature Attending Signature I have reviewed the PA/PLOW HOLDER's note and plan of care. I was available for consultation as needed during the patient's visit in the emergency department. I agree with the clinical impression, plan, and disposition. (AVELINO MORALES DO) TANIYA CRUZ APRN Nov 25, 2020 19:33 AVELINO MORALES DO Nov 26, 2020 01:40
--- NOTE | 2020-11-25 19:52 | RAD ---
Left ankle 3 views. HISTORY: Achilles pain 3 views were taken of the left ankle. There is not evidence of an acute fracture or osseous abnormali ty. IMPRESSION: 1. Negative left ankle. Electronically signed by: Magdiel Naylor MD (11/25/2020 7:50 PM) [facility]
== END 2020-11-25 20:05 | disposition home or self-care (01) ==
LOC: ER 18:50
DX: M76.62 Achilles tendinitis, left leg (principal); J45.909 Unspecified asthma, uncomplicated; K21.9 Gastro-esophageal reflux disease without esophagitis; F17.210 Nicotine dependence, cigarettes, uncomplicated; Z88.0 Allergy status to penicillin; Z88.1 Allergy status to other antibiotic agents
CPT/HCPCS: 73610; 99283

== ENCOUNTER 2021-01-30 08:34 | Emergency (ER) | payer BC ==
[~2021-01-30] VITALS: Ht 149.9 cm; Wt 135.9 kg
[2021-01-30 09:05] VITALS: BP 136/72
[2021-01-30 09:11] LABS: BACTERIA,URINE MANY /HPF (0-FEW); BILIRUBIN,URINE NEG (NEG); CLARITY,URINE CLOUDY; COLOR,URINE YELLOW; GLUCOSE,URINE NEG (NEG); NITRITE,URINE NEG (NEG); RBC,URINE 0 /HPF (0-2); SQUAMOUS EPITHELIAL CELL,UR MOD /LPF
--- NOTE | 2021-01-30 09:23 | PHYS DOC ---
Past History Past Medical History: Asthma, GERD, Other Additional Past Medical Histor: ULCERATIVE COLITIS Past Surgical History: Cholecystectomy, , Tonsillectomy Smoking: Cigarettes Alcohol Use: None Drug Use: None General Adult EDM: Chief Complaint: ABDOMINAL PAIN HPI: HPI: 30-year-old female presents with lower abdominal pain and generalized swelling. Patient states that she has been having lower abdominal pain since yesterday. She describes it as a moderate cramping sensation. She denies any falls or trauma. She has a history of only having a couple of bowel movements a week. She states this pattern has not changed. She denies dysuria or increased urinary frequency. The patient is also concerned that she feels like her body is swollen. Her feet and ankles are swollen. She also noticed her fingers have been swollen. The swelling was so significant in her feet yesterday that she could not put her work shoes back on after a break. She left work early. The swelling did not go down overnight. She denies significant change in diet. Denies measured fever. Review of Systems: Review of Systems: Constitutional: Denies fever or chills Eyes: Denies change in visual acuity HENT: Denies nasal congestion or sore throat Respiratory: Denies cough or shortness of breath Cardiovascular: Denies chest pain. Generalized edema GI: Suprapubic abdominal pain. denies nausea, vomiting, bloody stools or diarrhea : Denies dysuria Musculoskeletal: Denies back pain or joint pain Integument: Denies rash Neurologic: Denies headache, focal weakness or sensory changes Endocrine: Denies polyuria or polydipsia Lymphatic: Denies swollen glands Psychiatric: Denies depression or anxiety Allergies: Allergies: Allergies Coded Allergies Type Severity Reaction Last Updated Verified Penicillins Allergy Unknown 11/25/20 Yes cephalexin Allergy Unknown Hives 11/25/20 Yes ciprofloxacin Allergy Unknown Rash 11/25/20 Yes Physical Exam: PE: Constitutional: Well developed, well nourished, morbidly obese, no acute distress, non-toxic appearance. [] HENT: Normocephalic, atraumatic, bilateral external ears normal, oropharynx moist, no oral exudates, nose normal. [] Eyes: PERRLA, EOMI, conjunctiva normal, no discharge. [] Neck: Normal range of motion, no tenderness, supple, no stridor. [] Cardiovascular: Heart rate regular rhythm, no murmur [] Lungs & Thorax: Bilateral breath sounds clear to auscultation [] Abdomen: Bowel sounds normal, soft, moderate suprapubic tenderness, no masses, no pulsatile masses. [] Skin: Warm, dry, no erythema, no rash. [] Back: No tenderness, no CVA tenderness. [] Extremities: No tenderness, no cyanosis, no clubbing, ROM intact, 2+ nonpitting edema. [] Neurologic: Alert and oriented X 3, normal motor function, normal sensory function, no focal deficits noted. [] Psychologic: Affect normal, judgement normal, mood anxious. [] Current Patient Data: Labs: Laboratory Tests Test 01/30/21 08:46 01/30/21 08:53 Urine Collection Type Unknown Urine Color Yellow Urine Clarity Cloudy Urine pH 7.0 Urine Specific [place] 1.025 Urine Protein Neg (NEG-TRACE) Urine Glucose (UA) Neg mg/dL (NEG) Urine Ketones (Stick) Neg mg/dL (NEG) Urine Blood Neg (NEG) Urine Nitrite Neg (NEG) Urine Bilirubin Neg (NEG) Urine Urobilinogen Dipstick 1.0 mg/dL (0.2 mg/dL) Urine Leukocyte Esterase Neg (NEG) Urine RBC 0 /HPF (0-2) Urine WBC 5-10 /HPF (0-4) Urine Squamous Epithelial Cells Mod /LPF Urine Bacteria Many /HPF (0-FEW) POC Urine HCG, Qualitative hcg negative (Negative) Vital Signs: Vital Signs Date Time Temp Pulse Resp B/P (MAP) Pulse Ox O2 Delivery O2 Flow Rate FiO2 01/30/21 09:05 98.1 78 16 136/72 (93) 100 EKG: EKG: [] Radiology/Procedures: Radiology/Procedures: [] Impressions: CT ABDOMEN+PELVIS WO History: Reason: suprapubic tenderness / Spl. Instructions: / History: Technique: Noncontrast examination of the abdomen and pelvis. Coronal and sagittal reconstructions were performed. Exposure: One or more of the following individualized dose reduction techniques were utilized for this examination: 1. Automated exposure control 2. Adjustment of the mA and/or kV according to patient size 3. Use of iterative reconstruction technique. Comparison: September 08, 2020 Findings: Lower chest: No consolidation or pleural effusion. Abdomen and pelvis: Focal dilatation of the portion of the right hepatic lobe and the esophageal hiatus, unchanged. The spleen, adrenal glands, and pancreas are unremarkable. Prior cholecystectomy. No renal calculus. No hydronephrosis. No ureteral or urinary bladder calculus. Decompressed urinary bladder. Mild right-sided colonic wall thickening involving the cecum, ascending colon and proximal transverse colon. Minimal adjacent fat infiltration. Mild colonic diverticulosis. No evidence of bowel obstruction. Numerous mildly prominent mesenteric and retroperitoneal lymph nodes. No ascites. Bones: No pathologic osseous lesions. Impression: 1. Mild right colonic wall thickening with adjacent fat stranding, may represent infectious or inflammatory colitis. 2. Mildly prominent mesenteric and retroperitoneal lymph nodes, likely reactive. 3. Prior cholecystectomy. Electronically signed by: Milan Lee DO (01/30/2021 10:22 AM) [id number] DICTATED AND SIGNED BY: MILAN LEE DO DATE: 01/30/21 1012 CC: RYLEE DAMICO DO; ETHAN CHAVIRA MD ~MTH0 0 Heart Score: C/O Chest Pain: N/A Risk Factors: Risk Factors: DM, Current or recent (<one month) smoker, HTN, HLP, family history of CAD, obesity. Risk Scores: Score 0 - 3: 2.5% MACE over next 6 weeks - Discharge Home Score 4 - 6: 20.3% MACE over next 6 weeks - Admit for Clinical Observation Score 7 - 10: 72.7% MACE over next 6 weeks - Early Invasive Strategies Course & Med Decision Making: Course & Med Decision Making Pertinent Labs and Imaging studies reviewed. (See chart for details) The patient's labs are unremarkable. Her urinalysis does not show infection but she has many bacteria. I will suggest wet prep and GC chlamydia swabs. Patient CT of the abdomen and pelvis shows colitis. The patient has a history of ulcerative colitis but has not had a flare in some time. I will treat her with mesalamine 3 days. She is establishing with a new GI doc and plans to see him/her within 30 days. I will let them continue to manage the patient's treatment. Wet prep is negative for bacterial vaginosis. GC chlamydia is pending. She is stable for discharge at this time [] Amish Disclaimer: Amish Disclaimer: This electronic medical record was generated, in whole or in part, using a voice recognition dictation system. Departure Departure: Impression: Primary Impression: Ulcerative colitis, acute Qualified Codes: K51.90 - Ulcerative colitis, unspecified, without complicat ions Disposition: HOME / SELF CARE / HOMELESS Condition: STABLE Referrals: ETHAN CHAVIRA MD (PCP) Patient Instructions: Ulcerative Colitis Scripts Mesalamine (LIALDA) 1.2 Gm Tablet. 4 TAB PO DAILY for ulcerative colitis for 30 Days, #120 TAB 0 Refills Prov: RYLEE DAMICO DO 01/30/21 RYLEE DAMICO DO Jan 30, 2021 09:23
[2021-01-30 09:28] LABS: BASO # 0.1 x10^3/uL (0.0-0.2); BASO % 1 % (0-3); EOS # 0.3 x10^3/uL (0.0-0.7); EOS % 4 % (0-3); HEMATOCRIT 37.2 % (36.0-47.0); HEMOGLOBIN 11.8 g/dL (12.0-15.5); LYMPH # 2.2 x10^3/uL (1.0-4.8); LYMPH % 30 % (24-48); MEAN CORPUSCULAR HEMOGLOBIN 27 pg (25-35); MEAN CORPUSCULAR HGB CONC 32 g/dL (31-37); MEAN CORPUSCULAR VOLUME 84 fL (79-100); MONO # 0.6 x10^3/uL (0.0-1.1); MONO % 8 % (0-9); NEUT # 4.4 x10^3uL (1.8-7.7); NEUT % 58 % (31-73); PLATELET COUNT 350 x10^3/uL (140-400); RED BLOOD COUNT 4.43 x10^6/uL (3.50-5.40); RED CELL DISTRIBUTION WIDTH 14.7 % (11.5-14.5); WHITE BLOOD COUNT 7.6 x10^3/uL (4.0-11.0)
[2021-01-30] MEDS ORDERED: IOHEXOL 300 MG/ML 75 ML VIAL. IV ONE (09:30)
[2021-01-30] MEDS ORDERED: CONTRAST GIVEN. MC PRN (09:45)
[2021-01-30 09:47] LABS: CALCIUM 8.5 mg/dL (8.5-10.1); CREATININE 0.9 mg/dL (0.6-1.0)
[2021-01-30 09:53] LABS: ALBUMIN 3.2 g/dL (3.4-5.0); ALBUMIN/GLOBULIN RATIO 0.8 (1.0-1.7); TOTAL BILIRUBIN 0.2 mg/dL (0.2-1.0); TOTAL PROTEIN 7.4 g/dL (6.4-8.2)
--- NOTE | 2021-01-30 10:25 | RAD ---
CT ABDOMEN+PELVIS WO History: Reason: suprapubic tenderness / Spl. Instructions: / History: Technique: Noncontrast examination of the abdomen and pelvis. Coronal and sagittal reconstructions we re performed. Exposure: One or more of the following individualized dose reduction techniques were utilized for thi s examination: 1. Automated exposure control 2. Adjustment of the mA and/or kV according to patient size 3. Use of iterative reconstruction technique. Comparison: September 08, 2020 Findings: Lower chest: No consolidation or pleural effusion. Abdomen and pelvis: Focal dilatation of the portion of the right hepatic lobe and the esophageal hiat us, unchanged. The spleen, adrenal glands, and pancreas are unremarkable. Prior cholecystectomy. No renal calculus. No hydronephrosis. No ureteral or urinary bladder calculus. Decompressed urinary b ladder. Mild right-sided colonic wall thickening involving the cecum, ascending colon and proximal transverse colon. Minimal adjacent fat infiltration. Mild colonic diverticulosis. No evidence of bowel obstruct ion. Numerous mildly prominent mesenteric and retroperitoneal lymph nodes. No ascites. Bones: No pathologic osseous lesions. Impression: 1. Mild right colonic wall thickening with adjacent fat stranding, may represent infectious or infla mmatory colitis. 2. Mildly prominent mesenteric and retroperitoneal lymph nodes, likely reactive. 3. Prior cholecystectomy. Electronically signed by: Milan Kirkland DO (01/30/2021 10:22 AM) [id number]
[2021-01-30] MEDS ORDERED: ONDANSETRON ODT 4 MG TAB.RAPDIS ONE (11:00)
[2021-01-30] MEDS ORDERED: MESA1.2T PO (11:01)
[2021-01-30] MEDS ORDERED: ONDANSETRON ODT 4 MG TAB.RAPDIS PO ONE (11:15)
[2021-02-02 20:13] LABS: CHLAMYDIA PROBE Negative (Negative)
== END 2021-01-30 11:54 | disposition home or self-care (01) ==
LOC: ER 08:34
DX: K51.90 Ulcerative colitis, unspecified, without complications (principal); J45.909 Unspecified asthma, uncomplicated; K21.9 Gastro-esophageal reflux disease without esophagitis; F17.210 Nicotine dependence, cigarettes, uncomplicated; Z90.49 Acquired absence of other specified parts of digestive tract; Z98.890 Other specified postprocedural states; Z88.0 Allergy status to penicillin; Z88.1 Allergy status to other antibiotic agents
CPT/HCPCS: 36415; 74176; 80053; 81001; 81025; 85025; 87086; 87491; 87591; 99284; Q0111; Q0162; 87077; 87186

== ENCOUNTER 2021-03-20 09:47 | Emergency (ER) | payer BC ==
[~2021-03-20] VITALS: Ht 149.9 cm; Wt 135.9 kg
[~2021-03-20 09:47] MED LIST changes: +MESA1.2T PO
[2021-03-20 09:58] VITALS: BP 161/90
--- NOTE | 2021-03-20 10:21 | RAD ---
EXAMINATION: XR CHEST 1V CLINICAL HISTORY: Shortness of breath, cough. EXAM DATE/TIME: 03/20/2021 10:06 AM COMPARISON: 06/28/2011 FINDINGS: Lines, Tubes, and Devices: None. Cardiomediastinal Silhouette: Within normal limits. Lungs and Pleura: Mild patchy opacities suggested in the right upper lung zone. No evidence of pleura l effusion or pneumothorax. Bones and Soft Tissues: No acute osseous abnormality. IMPRESSION: Findings suspicious for mild patchy airspace disease in the right upper lung zone. Electronically signed by: Delfino Hayden DO (03/20/2021 10:19 AM) [facility]
[2021-03-20] MEDS ORDERED: BENZ-8 PO (10:30)
--- NOTE | 2021-03-20 10:34 | PHYS DOC ---
Past History Past Medical History: Asthma, GERD, Other Additional Past Medical Histor: ULCERATIVE COLITIS (JACKELYN DEE) Past Surgical History: Cholecystectomy, , Tonsillectomy (JACKELYN DEE) Smoking: Cigarettes Alcohol Use: None Drug Use: None (JACKELYN DEE) General Adult EDM: Chief Complaint: CONGESTION HPI: HPI: Patient is a 30 year old female history of ulcerative colitis who presents with nasal congestion, cough, shortness of breath and chest wall pain for the past week. Patient states that her pain is exacerbated by coughing and is most prominent after a coughing fit. She also reports associated anorexia. Patient states she received the first dose of Covid vaccination in January. She did not get her second dose because after the first dose, she had a UC flare. Patient did not receive a flu vaccination this season. Patient denies sore throat, substernal chest pressure, palpitations, NVD. (JACKELYN DEE) Review of Systems: Review of Systems: Constitutional: Denies fever, chills or generalized weakness Eyes: Denies change in visual acuity, visual field deficits or discharge HENT: See HPI Respiratory: See HPI Cardiovascular: Denies substernal chest pain, palpitations or edema GI: Denies abdominal pain, nausea, vomiting, bloody stools or diarrhea : Denies dysuria or hematuria Musculoskeletal: Denies back pain or joint pain Integument: Denies rash or other skin lesion Neurologic: Denies headache, focal weakness or sensory changes (JACKELYN DEE) Allergies: Allergies: Allergies Coded Allergies Type Severity Reaction Last Updated Verified Penicillins Allergy Unknown 11/25/20 Yes cephalexin Allergy Unknown Hives 11/25/20 Yes ciprofloxacin Allergy Unknown Rash 11/25/20 Yes (JACKELYN DEE) Physical Exam: PE: Constitutional: Obese, no acute distress, non-toxic appearance. HENT: Normocephalic, atraumatic, bilateral external ears normal, nose normal. Eyes: EOMI, conjunctiva normal, no discharge. Neck: Normal range of motion, no stridor. Skin: Warm, dry, no erythema, no rash. Back: No tenderness, no CVA tenderness. Extremities: No tenderness, no cyanosis, no clubbing, ROM intact, no edema. Neurologic: Alert and oriented x4, no focal deficits noted. (JACKELYN DEE) Current Patient Data: Labs: Laboratory Tests Test 03/20/21 10:17 Influenza Type A (Rapid) Negative (NEGATIVE) Influenza Type B (Rapid) Negative (NEGATIVE) Vital Signs: Vital Signs Date Time Temp Pulse Resp B/P (MAP) Pulse Ox O2 Delivery O2 Flow Rate FiO2 03/20/21 09:58 98.5 77 16 161/90 (113) 100 Room Air (JACKELYN DEE) Radiology/Procedures: Radiology/Procedures: PROCEDURE: CHEST AP ONLY EXAMINATION: XR CHEST 1V CLINICAL HISTORY: Shortness of breath, cough. EXAM DATE/TIME: 03/20/2021 10:06 AM COMPARISON: 06/28/2011 FINDINGS: Lines, Tubes, and Devices: None. Cardiomediastinal Silhouette: Within normal limits. Lungs and Pleura: Mild patchy opacities suggested in the right upper lung zone. No evidence of pleural effusion or pneumothorax. Bones and Soft Tissues: No acute osseous abnormality. IMPRESSION: Findings suspicious for mild patchy airspace disease in the right upper lung zone. Electronically signed by: Delfino Hayden DO (03/20/2021 10:19 AM) [facility] (JACKELYN DEE) Heart Score: C/O Chest Pain: N/A (JACKELYN DEE) Course & Med Decision Making: Course & Med Decision Making Pertinent Labs and Imaging studies reviewed. (See chart for details) (JACKELYN DEE) Dragon Disclaimer: Dragon Disclaimer: This electronic medical record was generated, in whole or in part, using a voice recognition dictation system. (JACKELYN DEE) Attending Co-Sign The patient was seen and interviewed as well as examined at the bedside. The chart was reviewed. The case was discussed. Agree with the plan of care. (RYLEE DAMICO DO) Departure Departure: Impression: Primary Impression: Viral syndrome Disposition: 01 HOME / SELF CARE / HOMELESS Condition: IMPROVED Referrals: ETHAN CHAVIRA MD (PCP) Patient Instructions: Viral Syndrome Additional Instructions: Follow the following supportive treatment measures: - Cool mist humidifier with plain water at bedside while you sleep - Mucinex (guaifenesin) per box instructions - Tessalon perles (benzonatate) for cough, especially you go to before bed - Alternate ibuprofen and acetaminophen every four hours for body aches/fever/headache - Use the incentive spirometer 5 times per day with 10 deep breaths each time If antibiotics were prescribed, take them as directed. The body will clear the infection over time. Self-care will help to ease discomfort. Steps to Take: - Rest as needed. - Choose healthy foods including fruits and vegetables. Drink water throughout the day. - Get plenty of sleep each night. - If you smoke, try to quit. It may ease breathing. - Avoid alcohol. - Keep Others Healthy - The virus can spread to others. Droplets are released every time you sneeze or cough. The droplets can get into the mouth, nose, or eyes of people near you and lead to infection. To lower the chances of spreading COVID-19 to others: Stay at home until your doctor has said it is safe to leave. If you tested positive this will mean staying isolated until both of the following are true: - At least 10 days have passed since the start of illness. - You are free of fever for at least 72 hours without the use of medicine. During this time: - Avoid public areas, events, or transportation. Do not return to work or school until your doctor has said it is safe to do so. - Call ahead if you need to go to a medical center. Let them know you may have COVID-19. It will help them guide you where to go. They may also ask you to wear a facemask when you come to the office. - If you call for emergency medical services, let them know you may have COVID- 19. While at home: - Try to avoid close contact with others. Stay about 6 feet away. - If possible, spend most of your time in a separate room from others. - Use a face mask if you will be in close contact with others such as sharing a room or vehicle. - Have someone wipe down common surfaces in the home. Use household juice tester every day on areas like doorknobs, counters, or sinks. - Cough or sneeze into a tissue. Throw the tissue away right after use. If a tissue is not available, cough or sneeze into your elbow. - Wash your hands often. Wash them after sneezing or coughing. Use soap and water and wash or at least 20 seconds. Alcohol based hand cooker cleaner can be used if soap and water is not available. - Do not prepare food for others. Avoid sharing personal items like forks, spoons, or toothbrushes. - Avoid close contact with pets while you are sick. There is no evidence of the virus passing to pets. This is a safety step until more is known about this virus. - Isolation can be frustrating. Social interaction can help. Keep in touch with friends and family through phone and tech options. You can still interact with others in your home, just keep a safe distance of about 6 feet. Follow-up: - Your doctors office will check in with you to see if there are any changes in your health. - You may be asked to keep track of symptoms to share with them. They will also let you know when you are clear to be in public again. Contact your doctor if your recovery is not going as you expect. Get emergency care if you have problems such as: - Trouble breathing with oxygen saturation <90% - Nonstop chest pain or pressure - Changes in awareness, confusion, or problems waking - Lips or face have bluish color - Worsening of symptoms If you think you have an emergency, call for emergency medical services right away. As taken from [facility] Benzonatate (BENZONATATE) 100 Mg Capsule 1-2 CAP PO HS for cough, #20 CAP Prov: JACKELYN DEE 03/20/21 JACKELYN DEE Mar 20, 2021 10:34 RYLEE DAMICO DO Mar 21, 2021 06:01
[2021-03-20 10:48] LABS: INFLUENZA A PATIENT NEGATIVE (NEGATIVE); INFLUENZA B PATIENT NEGATIVE (NEGATIVE)
== END 2021-03-20 11:04 | disposition home or self-care (01) ==
LOC: ER 09:47
DX: B34.9 Viral infection, unspecified (principal); J45.909 Unspecified asthma, uncomplicated; K21.9 Gastro-esophageal reflux disease without esophagitis; F17.210 Nicotine dependence, cigarettes, uncomplicated; Z88.0 Allergy status to penicillin; Z88.1 Allergy status to other antibiotic agents
CPT/HCPCS: 71045; 87428; 87804; 99284

== ENCOUNTER 2021-06-09 20:05 | Emergency (ER) | payer BC ==
[~2021-06-09] VITALS: Ht 149.9 cm; Wt 135.9 kg
[~2021-06-09 20:05] MED LIST changes: +BENZ-8 PO
[2021-06-09 20:30] VITALS: BP 123/62
--- NOTE | 2021-06-09 21:19 | PHYS DOC ---
Past History Past Medical History: Asthma, GERD, Other Additional Past Medical Histor: ULCERATIVE COLITIS (ERAN SALCIDO APRN) Past Surgical History: Cholecystectomy, , Tonsillectomy (ERAN SALCIDO APRN) Smoking: Cigarettes Alcohol Use: None Drug Use: None (ERAN SALCIDO APRN) General Adult EDM: Chief Complaint: ANKLE PROBLEM HPI: HPI: Patient is a 30-year-old female presents with left ankle pain. Patient states that she injured her ankle a year ago at work and has been seeing a doctor to have surgery completed. Patient states has been work comp so the process has been drawn out. Patient states that she did not have an injury but woke up this morning with lots of pain. Patient reports that pain to the ankle will come and go. Took naproxen with little relief. History of asthma and GERD. (ERAN SALCIDO APRN) Review of Systems: Review of Systems: ROS At least 10 ROS systems have been reviewed and are negative except as documented in the HPI. General: Negative except as outlined in HPI above. Skin: Negative except as outlined in HPI above. HEENT: Negative except as outlined in HPI above. Neck: Negative except as outlined in HPI above. Respiratory: Negative except as outlined in HPI above.. Cardiovascular: Negative except as outlined in HPI above. Abdomen: Negative except as outlined in HPI above. : Negative except as outlined in HPI above. Back/MSK: Negative except as outlined in HPI above. Neuro: Negative except as outlined in HPI above. Psych: Negative except as outlined in HPI above. (ERAN SALCIDO APRN) Current Medications: Current Meds: Current Medications Medications (Trade) Dose Ordered Sig/[facility]old Start Time Stop Time Status Last Admin Dose Admin Ibuprofen (Motrin) 600 mg 1X ONCE 06/09/21 21:30 06/09/21 21:31 (ERAN SALCIDO APRN) Allergies: Allergies: Allergies Coded Allergies Type Severity Reaction Last Updated Verified Penicillins Allergy Unknown 11/25/20 Yes cephalexin Allergy Unknown Hives 11/25/20 Yes ciprofloxacin Allergy Unknown Rash 11/25/20 Yes (ERAN SALCIDO APRN) Physical Exam: PE: Constitutional: Well developed, well nourished, no acute distress, non-toxic appearance. [] HENT: Normocephalic, atraumatic, bilateral external ears normal, oropharynx moist, no oral exudates, nose normal. [] Eyes: PERRLA, EOMI, conjunctiva normal, no discharge. [] Neck: Normal range of motion, no tenderness, supple, no stridor. [] Cardiovascular:Heart rate regular rhythm, no murmur [] Lungs & Thorax: Bilateral breath sounds clear to auscultation [] Abdomen: Bowel sounds normal, soft, no tenderness, no masses, no pulsatile masses. [] Skin: Warm, dry, no erythema, no rash. [] Back: No tenderness, no CVA tenderness. [] Extremities: Left ankle tenderness, ROM intact, sensation intact, no edema. [] Neurologic: Alert and oriented X 3, normal motor function, normal sensory function, no focal deficits noted. [] Psychologic: Affect normal, judgement normal, mood normal. [] (ERAN SALCIDO APRN) Current Patient Data: Vital Signs: Vital Signs Date Time Temp Pulse Resp B/P (MAP) Pulse Ox O2 Delivery O2 Flow Rate FiO2 06/09/21 20:30 98.4 72 18 123/62 (82) 99 Room Air (ERAN SALCIDO APRN) EKG: EKG: [] (ERAN SALCIDO APRN) Radiology/Procedures: Radiology/Procedures: [] (ERAN SALCIDO APRN) Heart Score: C/O Chest Pain: No Risk Factors: Risk Factors: DM, Current or recent (<one month) smoker, HTN, HLP, family history of CAD, obesity. Risk Scores: Score 0 - 3: 2.5% MACE over next 6 weeks - Discharge Home Score 4 - 6: 20.3% MACE over next 6 weeks - Admit for Clinical Observation Score 7 - 10: 72.7% MACE over next 6 weeks - Early Invasive Strategies (ERAN SALCIDO APRN) Course & Med Decision Making: Course & Med Decision Making Pertinent Labs and Imaging studies reviewed. (See chart for details) [] 30 old female presents with left ankle pain. Patient states that she injured her ankle a year ago but has not been able to have surgery on it due to work comp. Patient denies new injury. X-ray was unremarkable. No acute findings. Patient is requesting something for pain and a work note. Patient given hyd rocodone and a work note for 3 days. Advised patient to call and make a follow- up appointment. (ERAN SALCIDO APRN) Course & Med Decision Making Do not see or evaluate patient. Did not discuss patient with MOTOR VEHICLE EXAMINER. Generally ag ree with MOTOR VEHICLE EXAMINER's work-up and disposition per note (YORDAN MAX MD) Amish Disclaimer: Amish Disclaimer: This electronic medical record was generated, in whole or in part, using a voice recognition dictation system. (ERAN SALCIDO APRN) Departure Departure: Impression: Primary Impression: Strain of left Achilles tendon, initial encounter Disposition: HOME / SELF CARE / HOMELESS Condition: STABLE Referrals: ETHAN CHAVIRA MD (PCP) Patient Instructions: Achilles Tendinitis Additional Instructions: You were seen in the emergency room for ankle pain. X-ray was unremarkable. You need to follow back up with your physician who was treating this over the last year. You were given pain medication as well. Take ibuprofen and Tylenol for pain. Return emergency room for worsening symptoms or concerns. EMERGENCY DEPARTMENT GENERAL DISCHARGE INSTRUCTIONS Thank you for coming to [facility] (ED) today and trusting us with you care. We trust that you had a positivie experience in our Emergency Department. If you wish to speak to the department management, you may call the director at [phone]. YOUR FOLLOW UP INSTRUCTIONS ARE FOLLOWS: 1. Do you have a private Doctor? If you do not have a private doctor, please ask for a resource list of physicians or clinics that may be able to assist you with follow up care. 2. The Emergency Physician has interpreted your x-rays. The X-Ray specialist will also review them. If there is a change in the findings, you will be notified in 48 hours when at all possible. 3. A lab test or culture has been done, your results will be reviewed and you will be notified if you need a change in treatment. ADDITIONAL INSTRUCTIONS AND INFORMATION: 1. Your care today has been supervised by a physician who is specially trained in emergency care. Many problems require more than one evaluation for a complete diagnosis and treatment. We recommend that you schedule your follow up appointment as recommended to ensure complete treatment of you illness or injury. If you are unable to obtain follow up care and continue to have a problem, or if your condition worsens, we recommend that you return to the ED. 2. We are not able to safely determine your condition over the phone nor are we able to give sound medical advice over the phone. For these safety reasons, if you call for medical advice we will ask you to come to the ED for further evaluation. 3. If you have any questions regarding these discharge instructions please call the ED at [phone]. SAFETY INFORMATION: In the interest of safety, wellness, and injury prevention; we encourage you to wear your sealbelt, if you smoke; quite smoking, and we encourage family to use a protective helmet for bicycling and other sporting events that present an increased risk for head injury. IF YOUR SYMPTOMS WORSEN OR NEW SYMPTOMS DEVELOP, OR YOU HAVE CONCERNS ABOUT YOUR CONDITION; OR IF YOUR CONDITION WORSENS WHILE YOU ARE WAITING FOR YOUR FOLLOW UP APPOINTMENT; EITHER CONTACT YOUR PRIMARY CARE DOCTOR, THE PHYSICIAN WHOSE NAME AND NUMBER YOU WERE GIVEN, OR RETURN TO THE ED IMMEDIATELY. ERAN SALCIDO APRN Jun 09, 2021 21:19 YORDAN MAX MD Jun 09, 2021 22:19
[2021-06-09] MEDS ORDERED: IBUPROFEN 600 MG TABLET. PO ONE (21:30)
--- NOTE | 2021-06-09 22:20 | RAD ---
Exam: Left ankle 3 views INDICATION: Left ankle pain, swelling TECHNIQUE: Frontal, lateral and oblique views of the left ankle Comparisons: None FINDINGS: Bone mineralization is normal. No acute or healed fractures. Soft tissues are unremarkable. Joint spa erasto are well-maintained. IMPRESSION: No acute osseous abnormality Electronically signed by: Lizz Klein MD (06/09/2021 10:18 PM) MODE
== END 2021-06-09 22:00 | disposition home or self-care (01) ==
LOC: ER 20:05
DX: S86.012A Strain of left Achilles tendon, initial encounter (principal); J45.909 Unspecified asthma, uncomplicated; K21.9 Gastro-esophageal reflux disease without esophagitis; F17.210 Nicotine dependence, cigarettes, uncomplicated; Z88.0 Allergy status to penicillin; Z88.1 Allergy status to other antibiotic agents; X58.XXXA Exposure to other specified factors, initial encounter; Y93.89 Activity, other specified; Y92.89 Other specified places as the place of occurrence of the external cause; Y99.8 Other external cause status
CPT/HCPCS: 73610; 99283

== ENCOUNTER 2021-07-03 22:22 | Emergency (ER) | payer BC ==
[~2021-07-03] VITALS: Ht 149.9 cm; Wt 135.9 kg
[2021-07-03 22:29] VITALS: BP 133/85
--- NOTE | 2021-07-03 22:45 | PHYS DOC ---
Past History Past Medical History: Asthma, GERD, Other Additional Past Medical Histor: ULCERATIVE COLITIS Past Surgical History: Cholecystectomy, , Tonsillectomy Smoking: Cigarettes Alcohol Use: Occasionally Drug Use: None Adult General Chief Complaint Chief Complaint: ANKLE PROBLEM HPI HPI Patient is a 30-year-old female presents emergency department for evaluation of left foot and ankle pain and numbness with tingling that started earlier today. She had Achilles tendon surgery on June 22 and is in a cast. She is supposed to be completely nonweightbearing but she admitted that she bears weight slightly several times a day and that she got her foot caught on a rug and it pulled on her foot and caused her significant discomfort and she has felt pain since that time in addition to the numbness and tingling in her big toe and her second toe. She says she took all of her oxycodone and now she is out of pain medications and does not know what to do for pain. She is supposed to follow with her surgeon Dr. Bustamante on the but said that she was in too much pain and called 911. She is in no acute distress with normal vital signs. Review of Systems Review of Systems Constitutional: Denies fever or chills [] Musculoskeletal: Denies back pain. + joint pain [] Integument: Denies rash or skin lesions [] Neurologic: Denies headache, focal weakness. + sensory changes [] All other systems were reviewed and found to be within normal limits, except as documented in this note. Current Medications Current Medications Current Medications Medications (Trade) Dose Ordered Sig/[facility] Start Time Stop Time Status Last Admin Dose Admin Hydromorphone HCl (Dilaudid) 2 mg 1X ONCE 07/03/21 23:00 07/03/21 23:01 Allergies Allergies Allergies Coded Allergies Type Severity Reaction Last Updated Verified Penicillins Allergy Unknown 11/25/20 Yes cephalexin Allergy Unknown Hives 11/25/20 Yes ciprofloxacin Allergy Unknown Rash 11/25/20 Yes Physical Exam Physical Exam Constitutional: Well developed, well nourished, no acute distress, non-toxic appearance. [] Skin: Warm, dry, no erythema, normal capillary refill at 1 second on all of her toes and her left foot. Extremities: No tenderness, no cyanosis, no clubbing, ROM intact, no edema. [] Neurologic: Alert and oriented X 3, normal motor function with ability to move all of her toes in her left foot. She says she can feel me touching her big toe and second toe but it feels tingly and dull compared to her other toes. Current Patient Data Vital Signs Vital Signs Date Time Temp Pulse Resp B/P (MAP) Pulse Ox O2 Delivery O2 Flow Rate FiO2 07/03/21 22:29 98.3 66 18 133/85 (101) 100 Room Air EKG EKG [] Radiology/Procedures Radiology/Procedures [] Heart Score C/O Chest Pain: No Risk Factors: Risk Factors: DM, Current or recent (<one month) smoker, HTN, HLP, family history of CAD, obesity. Risk Scores: Risk Factors: DM, Current or recent (<one month) smoker, HTN, HLP, family history of CAD, obesity. Course & Med Decision Making Course & Med Decision Making My concern for ruling out worst-case scenario in the emergency department would be compartment syndrome. She has normal cap refill at this time but certainly she could have caused an inflammatory process in a close space in her cast. I told her that I would prefer to take her cast off but then I was informed that we have no ability to remove a cast here as we have no cast cutting supplies. I spoke to the transfer center and I was not able to speak to the orthopedic surgeon on-call but the school community relations coordinator spoke to Dr. Pérez Hernandez and relayed the information of the injury with new neurologic deficits and he recommended that we cut the cast off and after the school community relations coordinator told that we do not have the ability to cut off her cast he then said that she should just leave the cast on and follow-up with Dr. Bustamante on Tuesday. I informed the patient about this conversation and that his initial response was to have the cast cut off and then after he found out that we cannot cut the cast off that she should keep it on and follow-up on Tuesday. I told her that I was unable to get her transferred to but is willing to get her transferred to another facility where they would be able to cut off her cast and she refused stating that she would take the recommendations that was given earlier when she called the on- call line of elevating her leg and putting ice on it. She is also asking for refill of her oxycodone as she has run out. I told her I can prescribe her enough to get her through the weekend but she will have to call her orthopedic surgeon on Tuesday. I told her if she has worsening pain color changes to her toes worsening numbness or other concerns that she would have to come back to the emergency department and we would have to arrange transfer either to or a different facility. Patient aware and agreeable with plan and verbalized understanding of the above instructions and she was discharged in stable condition. Dragon Disclaimer Dragon Disclaimer This electronic medical record was generated, in whole or in part, using a voice recognition dictation system. Departure Departure: Impression: Primary Impression: Paresthesia of left foot Additional Impression: Left ankle pain Disposition: HOME / SELF CARE / HOMELESS Condition: GUARDED Referrals: ETHAN CHAVIRA MD (PCP) Patient Instructions: Paresthesia, [id number] Scripts Oxycodone Hcl (OXYCODONE HCL IMMED.RELEASE ) 5 Mg Tablet 5 MG PO PRN Q4HRS PRN for PAIN, #20 TAB Prov: ANTHONY ESPINO DO 07/03/21 Problem Qualifiers Additional Impression: Left ankle pain Chronicity: unspecified Qualified Codes: M25.572 - Pain in left ankle and joints of left foot ANTHONY ESPINO DO July 03, 2021 22:45
[2021-07-03] MEDS ORDERED: HYDROmorphone PF 2 MG/ML VIAL IM ONE (23:00)
[2021-07-03] MEDS ORDERED: OXYC5TAB4 PO (23:14)
== END 2021-07-03 23:30 | disposition home or self-care (01) ==
LOC: ER 22:22
DX: M25.572 Pain in left ankle and joints of left foot (principal); R20.2 Paresthesia of skin; J45.909 Unspecified asthma, uncomplicated; K21.9 Gastro-esophageal reflux disease without esophagitis; F17.210 Nicotine dependence, cigarettes, uncomplicated; Z88.0 Allergy status to penicillin; Z88.1 Allergy status to other antibiotic agents
CPT/HCPCS: 96372; 99283; J1170